=== PATIENT | female | born 1970 | race American Indian/Alaskan Native ===

== ENCOUNTER 2016-11-29 23:40 | Inpatient (IN) | payer MEDICAID ==
[2016-11-30 01:35] LABS: Basophils % (Auto) 0.9 % (0.0-1.8); Eosinophils % (Auto) 5.4 % (0.0-4.3); Hematocrit 31.3 % (30.3-42.9); Hemoglobin 10.2 gm/dl (10.1-14.3); Mean Corpuscular HGB Conc 33 % (30-34); Mean Corpuscular Hemoglobin 28 pg (28-32); Mean Corpuscular Volume 85 fl (79-97); Platelet Count 141 K/mm3 (140-440); Red Blood Count 3.69 M/mm3 (3.65-5.03); Red Cell Distribution Width 16.1 % (13.2-15.2); White Blood Count 5.1 K/mm3 (4.5-11.0)
[2016-11-30 01:53] LABS: BUN/Creatinine Ratio 16; Blood Urea Nitrogen 11 mg/dL (7-17); Carbon Dioxide 23 mmol/L (22-30); Glucose 83 mg/dL (65-100)
[2016-11-30 01:54] LABS: Alanine Aminotransferase 16 units/L (7-56); Albumin 3.5 g/dL (3.9-5); Albumin/Globulin Ratio 1.3 %; Alkaline Phosphatase 45 units/L (35-129); Anion Gap 18 mmol/L; Calcium 8.6 mg/dL (8.4-10.2); Lipase 21 units/L (13-60); Potassium 3.4 mmol/L (3.6-5.0); Sodium 142 mmol/L (137-145); Total Protein 6.3 g/dL (6.3-8.2)
[2016-11-30 02:26] LABS: Bilirubin,Urine SM (Negative); Blood,Urine NEG (Negative); Ketones,Urine 20 mg/dL (Negative); Leukocyte Esterase,Urine NEG (Negative); Mucus,Urine 3+ /HPF; Nitrite,Urine NEG (Negative)
[2016-11-30] MEDS ORDERED: ZOFRAN IV ONE (03:16)
[2016-11-30] MEDS ORDERED: NACL 0.9% 500 ML 500 ML IV ONE (03:16)
[2016-11-30] MEDS ORDERED: NACL 0.9% 1000 ML 1,000 ML ONE (03:41)
[2016-11-30] MEDS ORDERED: BENADRYL IV ONE (05:17)
[2016-11-30] MEDS ORDERED: NACL 0.9% 1000 ML 1,000 ML IV SCH (06:00)
--- NOTE | 2016-11-30 06:15 | Emergency Department Report ---
HPI - General Chief Complaint: Chest Pain Time Seen by Provider: 11/30/16 02:58 - HPI HPI: This is a 46-year-old female presents to the emergency Department with complaints of nausea, vomiting and significant edema. The patient was just discharged from [facility] after she had a surgical revision of her gastric bypass by Dr. Pitt. She was sent home with some pain medication and nausea medications but she has been unable to take these medications because she has been having copious nausea and vomiting. She is unable to eat any food and even has trouble keeping down small amounts of liquid. Secondarily the patient has the complaint of swelling to the feet, legs and up into her abdomen. She denies any history of CHF. She says that she has gained about 15 pounds in a short time secondary to this edema. She denies any chest pain, shortness of breath. She does say that she has some discomfort when trying to swallow but she had this status post revision as well. She has a past medical history that includes diabetes and arthritis. ED Past Medical Hx - Past Medical History Previous Medical History?: Yes Hx Hypertension: No Hx Congestive Heart Failure: No Hx Diabetes: No Hx GERD: Yes Hx Liver Disease: No Hx Renal Disease: No Hx Arthritis: Yes (Knees) Hx Seizures: No Hx Asthma: No Hx COPD: No Hx HIV: No - Surgical History Past Surgical History?: Yes Hx Breast Surgery: Yes (left cyst) - Social History Smoking Status: Never Smoker Substance Use Type: None - Medications Home Medications: Home Medications Medication Instructions Recorded Confirmed Last Taken Type Acetaminophen [Tylenol Extra 500 mg PO PRN PRN 11/18/16 11/18/16 11/20/16 History Strength] Cetirizine HCl [Zyrtec] 10 mg PO DAILY 11/18/16 11/18/16 11/20/16 History Ranitidine HCl [Zantac 150 MG TAB] 150 mg PO BID 11/18/16 11/18/16 11/20/16 History Fluticasone [Flonase] 1 spray NS QDAY 11/22/16 11/22/16 11/21/16 History ED Review of Systems ROS: Stated complaint: SWELLING IN FEET,LEGS & BELLY, Other details as noted in HPI Comment: All other systems reviewed and negative Constitutional: denies: chills, fever Eyes: denies: eye pain, eye discharge, vision change ENT: denies: ear pain, dental pain Respiratory: denies: cough, shortness of breath Cardiovascular: edema. denies: syncope Gastrointestinal: nausea, vomiting Genitourinary: denies: urgency, dysuria, discharge Musculoskeletal: denies: back pain, joint swelling, arthralgia Skin: denies: rash, lesions Neurological: denies: headache, weakness, paresthesias Physical Exam - Physical Exam Vital Signs: Vital Signs 11/30/16 11/30/16 11/30/16 00:29 03:50 03:51 Temperature 98 F 97.9 F Pulse Rate 40 L 45 L Respiratory 18 16 16 Rate Blood Pressure 134/60 Blood Pressure 110/51 [Right] O2 Sat by Pulse 100 100 100 Oximetry 11/30/16 03:53 Temperature Pulse Rate 45 L Respiratory Rate Blood Pressure Blood Pressure [Right] O2 Sat by Pulse Oximetry Physical Exam: GENERAL: The patient is well-developed well-nourished. HENT: Normocephalic. Atraumatic. Patient has moist mucous membranes. EYES: Extraocular motions are intact. Pupils equal reactive to light bilaterally. NECK: Supple. Trachea is midline. CHEST/LUNGS: Clear to auscultation. There is no respiratory distress noted. HEART/CARDIOVASCULAR: Regular. There is no tachycardia. There is no gallop rub or murmur. ABDOMEN: Abdomen is soft, nontender. Patient has normal bowel sounds. There is mild abdominal distention. SKIN: Patient has significant nonpitting edema to the bilateral lower extremities and up to the lower abdomen. NEURO: The patient is awake, alert, and oriented. The patient is cooperative. The patient has no focal neurologic deficits. The patient has normal speech. MUSCULOSKELETAL: There is no tenderness or deformity. There is no limitation range of motion. There is no evidence of acute injury. ED Course Vital Signs 11/30/16 11/30/16 11/30/16 00:29 03:50 03:51 Temperature 98 F 97.9 F Pulse Rate 40 L 45 L Respiratory 18 16 16 Rate Blood Pressure 134/60 Blood Pressure 110/51 [Right] O2 Sat by Pulse 100 100 100 Oximetry 11/30/16 03:53 Temperature Pulse Rate 45 L Respiratory Rate Blood Pressure Blood Pressure [Right] O2 Sat by Pulse Oximetry - Consultations Consultation #1: I spoke to Antoni, the nurse practitioner for Dr. Pitt. We discussed that the patient has been having nausea, vomiting and does appear to have signs of dehydration but that it is atypical as the patient also has significant generalized edema and it is hard to diuresis her and give her IV fluid resuscitation at the same time. At first we were going to attempt adding Phenergan per rectum with outpatient follow-up, but the patient still has been unable to keep down liquids and she'll oral rehydration. For this reason, Antoni allowed me to place bridging orders to Dr. Pitt's service. 11/30/16 06:13 ED Medical Decision Making - Lab Data Result diagrams: 11/30/16 01:09 11/30/16 01:09 - Medical Decision Making 46-year-old female presents to the emergency department with nausea, vomiting, dehydration and edema since being discharged after a surgical revision of her gastric bypass surgery. The majority of the patient's labs are unremarkable but she does have some ketones in her urine that do show some dehydration. Vital signs stable throughout her ED course. On physical exam the patient has significant nonpitting edema to the feet, bilateral lower extremities and even up into the abdomen. If the patient wasn't having signs of dehydration and required some fluid resuscitation, I normally would give Lasix and try diuresis. This would be counter intuitive and this particular patient. She was given some Zofran and continues to have some nausea and some vomiting and unable to keep down fluids for oral rehydration. On top of that the patient does have this unexplained significant edema with weight gain. And the patient has some sustained bradycardia where she is in the 40s. For all these reasons the patient will be admitted to the hospital for further evaluation. I was given permission to place the patient on MedSurg to Dr. Pitt's service. Critical Care Time: No Critical care attestation.: If time is entered above; I have spent that time in minutes in the direct care of this critically ill patient, excluding procedure time. ED Disposition Clinical Impression: Bradycardia, Dehydration Edema Qualifiers: Edema type: generalized Qualified Code(s): R60.1 - Generalized edema Nausea & vomiting Qualifiers: Vomiting type: unspecified Vomiting Intractability: intractable Qualified Code( s): R11.2 - Nausea with vomiting, unspecified Disposition: OP ADMIT IP TO THIS HOSP Is pt being admited?: Yes Condition: Stable Time of Disposition: 06:17
[2016-11-30] MEDS ORDERED: DILAUDID IV PRN (10:16)
[2016-11-30] MEDS: 1: FOLVITE 1 MG, INFUVITE 10 ML, VITAMIN B-1 100 MG in NACL 0.9% 1000 ML 988.8 ML 2: NA IV SCH (11:44)
[2016-11-30] MEDS: DILAUDID IV PRN ×3 (11:45→23:14)
[2016-11-30] MEDS: HEPARIN SUB-Q SCH ×3 (14:12→23:06)
[2016-11-30] MEDS ORDERED: D5W/0.45% NACL/KCL 20 MEQ 20 MEQ/1,000 ML BAG IV SCH (15:00)
[2016-11-30] MEDS ORDERED: KCL 10MEQ/100ML 10 MEQ/100 ML BAG IV SCH (15:00)
[2016-11-30] MEDS: BENADRYL IV PRN ×2 (16:50→23:09)
[2016-11-30] MEDS: KCL 10MEQ/100ML 10 MEQ/100 ML BAG IV SCH ×2 (20:57→22:59)
--- NOTE | 2016-11-30 21:29 | History and Physical Report ---
History of Present Illness Date of examination: 12/01/16 Date of admission: 11/30/16 05:42 Chief complaint: vomiting after drinking, leg edema History of present illness: 46 y.o. F presented to the hospital for vomiting after eating and lower extremity edema. Pt was recently discharged last week. She is s/p laparoscopic revision of gastric bypass 11/22. She tolerated the procedure well. Post operatively she had difficulty swallowing. She often had regurg if liquids after swallowing. This improved over the course of 2-3 days and she was able to be discharged. She presented now with the same complaint. She does not vomit after drinking everytime. She feels tightness in her lower chest after swallowing and feels the liquid gets stuck. The liquid pools that comes up. She denies nausea or sob. She denies chest pain at rest or when she is not swallowing. She also complains of bl leg swelling. She stated the swelling happend shortly after she was discharged from the hospital. She her legs also swelled after she had a c section years ago. She denies sob or orthopnea. Past History Past Medical History: No medical history, other (Pt does not have a pcp currently) Past Surgical History: Other (c section, Lap gastric bypass, lap gastric bypass revision 11/22/2016) Social history: no significant social history Family history: no significant family history Medications and Allergies Allergies Allergy/AdvReac Type Severity Reaction Status Date / Time No Known Allergies Allergy Verified 11/30/16 00:38 Home Medications Medication Instructions Recorded Confirmed Last Taken Type Acetaminophen [Tylenol Extra 500 mg PO PRN PRN 11/18/16 11/18/16 11/20/16 History Strength] Cetirizine HCl [Zyrtec] 10 mg PO DAILY 11/18/16 11/18/16 11/20/16 History Ranitidine HCl [Zantac 150 MG TAB] 150 mg PO BID 11/18/16 11/18/16 11/20/16 History Fluticasone [Flonase] 1 spray NS QDAY 11/22/16 11/22/16 11/21/16 History Active Meds: Active Medications Diphenhydramine HCl (Benadryl) 25 mg IV Q6H PRN PRN Reason: Itching Last Admin: 11/30/16 16:50 Dose: 25 mg Heparin Sodium (Porcine) (Heparin) 5,000 unit SUB-Q Q8HR [facility] Last Admin: 11/30/16 14:12 Dose: 5,000 unit Hydromorphone HCl (Dilaudid) 0.5 mg IV Q3H PRN PRN Reason: Pain , Severe (7-10) Last Admin: 11/30/16 16:50 Dose: 0.5 mg Folic Acid 1 mg/ Multivitamins /Minerals 10 ml/ Thiamine HCl 100 mg/ Sodium Chloride 1,000 mls @ 125 mls/hr IV .BY DURATION [facility] Last Admin: 11/30/16 11:44 Dose: 125 mls/hr Sodium Chloride (Nacl 0.9% 1000 Ml) 1,000 mls @ 125 mls/hr IV .BY DURATION [facility] Potassium Chloride/Dextrose/Sod Cl (D5w/0.45% Nacl/Kcl 20 Meq) 20 meq in 1,000 mls @ 125 mls/hr IV DIRECT RIA Potassium Chloride (Kcl 10meq/100ml) 10 meq in 100 mls @ 100 mls/hr IV Q1H [facility] Stop: 11/30/16 21:59 Review of Systems - Constitutional weight gain (feels swelling has caused her to gain wt), no weight loss - Cardiovascular chest pain (when swallow), edema, no orthopnea, no palpitations, no rapid/ irregular heart beat - Respiratory no cough, no cough with sputum, no excessive sputum, no hemoptysis, no shortness of breath - Gastrointestinal vomiting (per hpi), no abdominal pain, no nausea - Muskuloskeletal no neck stiffness, no neck pain, no shooting arm pain, no arm numbness/tingling , no low back pain, no shooting leg pain, no leg numbness/tingling, no redness of joints - Integumentary pruritis, no rash, no redness, no sores, no wounds, no jaundice - Neurological no numbness, no syncope - Psychiatric no anxiety, no memory loss Exam Vital Signs Temp Pulse Resp BP Pulse Ox 98 F 40 L 18 134/60 100 11/30/16 00:29 11/30/16 00:29 11/30/16 00:29 11/30/16 00:29 11/30/16 00:29 - General physical appearance Positive: well developed, well nourished, no distress - Eyes Positive: PERRL - Cardiovascular Rhythm: regular - Extremities Extremity abnormal: edema (BL lower extremity edema: feet to mid thigh. +1) Peripheral Pulses: within normal limits - Breasts Breasts: deferred - Abdomen Abdomen: Present: soft (tender at umbilicus. umbilius: serous/white drainage. no erythema. incisions healing. no rebound no guarding ) - Integumentary no rash - Neurologic Neurologic: motor strength and sensation are grossly intact - Musculoskeletal normal posture - Psychiatric Psychiatric: appropriate mood/affect, intact judgment & insight, memory intact Results - Labs 12/01/16 04:20 12/01/16 04:20 Abnormal lab results 11/30/16 Range/Units Unknown Ur Specific [place] 1.033 H (1.003-1.030) Assessment and Plan 46 y.o. F s/p Lap revision of gastric bypass 1 week ago, now presenting with vomiting: -Vomiting/regurgitation after liquids: Prev. UGI series showed possible esophageal spasm. Will treat conservatively. If symptoms do not improve will order CT with po contast -LE edema: r/o dvt: venous duplex ordered bl lower extremities - Bradycardia: asymptomatic but no prev. hx except for last admission Cardiology consulted- Requested TSH and echo. EKG performed this am. GI and DVT proph - Patient Problems (1) Dehydration Current Visit: Yes Status: Acute
[2016-12-01] MEDS: BENADRYL IV PRN ×3 (04:34→17:52)
[2016-12-01] MEDS: DILAUDID IV PRN ×3 (04:34→17:52)
[2016-12-01 05:04] LABS: Basophils % (Auto) 1.1 % (0.0-1.8); Eosinophils % (Auto) 5.6 % (0.0-4.3); Hematocrit 31.1 % (30.3-42.9); Hemoglobin 10.2 gm/dl (10.1-14.3); Mean Corpuscular HGB Conc 33 % (30-34); Mean Corpuscular Hemoglobin 28 pg (28-32); Mean Corpuscular Volume 86 fl (79-97); Platelet Count 134 K/mm3 (140-440); Red Cell Distribution Width 16.4 % (13.2-15.2); White Blood Count 3.5 K/mm3 (4.5-11.0)
[2016-12-01 05:30] LABS: Anion Gap 16 mmol/L; BUN/Creatinine Ratio 18; Blood Urea Nitrogen 11 mg/dL (7-17); Calcium 8.4 mg/dL (8.4-10.2); Carbon Dioxide 25 mmol/L (22-30); Chloride 105.4 mmol/L (98-107); Glucose 70 mg/dL (65-100); Potassium 3.8 mmol/L (3.6-5.0); Sodium 143 mmol/L (137-145)
[2016-12-01] MEDS: HEPARIN SUB-Q SCH ×2 (05:40→13:45)
[2016-12-01] MEDS: 1: FOLVITE 1 MG, INFUVITE 10 ML, VITAMIN B-1 100 MG in NACL 0.9% 1000 ML 988.8 ML 2: NA IV SCH ×2 (05:56→12:57)
--- NOTE | 2016-12-01 09:02 | Progress Note ---
Assessment and Plan 46 y.o. F s/p Lap revision of gastric bypass 1 week ago, now presenting with vomiting: -Vomiting/regurgitation after liquids: Prev. UGI series showed possible esophageal spasm. Will treat conservatively. If symptoms do not improve will order CT with po contast -LE edema: r/o dvt: venous duplex ordered bl lower extremities - prelim report neg for dvt - Bradycardia/lower ext edea: asymptomatic but no prev. hx except for last admission Cardiology consulted- Requested TSH and echo. EKG performed this am. GI and DVT proph - Patient Problems (1) Dehydration Current Visit: Yes Status: Acute Subjective Narrative: Pt seen and examined at bedside. Pt resting comfortably. Denies nausea. Pt has not tried drinking anything since being admitted. Denies abominal pain or chest pain currently. Denies sob. C/o lower extremity edema but has slightly improved since admission. denies fever or chills. Objective Vital Signs - 12hr 12/01/16 12/01/16 12/01/16 00:11 00:12 04:00 Temperature 97.4 F L 97.5 F L Pulse Rate 53 L 57 L Respiratory 18 Rate Blood Pressure 125/71 Blood Pressure 132/76 [Right] O2 Sat by Pulse 97 Oximetry 12/01/16 12/01/16 04:57 04:58 Temperature Pulse Rate 54 L 59 L Respiratory Rate Blood Pressure Blood Pressure [Right] O2 Sat by Pulse 98 95 Oximetry - General physical appearance well developed, obese - Respiratory normal expansion, normal respiratory effort - Abdomen soft, bowel sounds normal, other (incision site healing- umbilicus draining clear/white discharge. no rebound no guarding ) - Integumentary no rash - Neurologic normal coordination, normal sensation - Musculoskeletal normal posture, other (+1 lower extremity edema bl. feet to mid thigh. non tender legs bl) - Labs 12/01/16 04:20 12/01/16 04:20 Diabetes panel 12/01/16 Range/Units 04:20 Sodium 143 (137-145) mmol/L Potassium 3.8 (3.6-5.0) mmol/L Chloride 105.4 (98-107) mmol/L Carbon Dioxide 25 (22-30) mmol/L BUN 11 (7-17) mg/dL Creatinine 0.6 L (0.7-1.2) mg/dL Glucose 70 (65-100) mg/dL Calcium 8.4 (8.4-10.2) mg/dL Thyroid panel 12/01/16 Range/Units 04:20 TSH 1.440 (0.270-4.200) mlU/mL Calcium panel 12/01/16 Range/Units 04:20 Calcium 8.4 (8.4-10.2) mg/dL Phosphorus 3.90 (2.5-4.5) mg/dL Pituitary panel 12/01/16 12/01/16 Range/Units 04:20 04:20 Sodium 143 (137-145) mmol/L Potassium 3.8 (3.6-5.0) mmol/L Chloride 105.4 (98-107) mmol/L Carbon Dioxide 25 (22-30) mmol/L BUN 11 (7-17) mg/dL Creatinine 0.6 L (0.7-1.2) mg/dL Glucose 70 (65-100) mg/dL Calcium 8.4 (8.4-10.2) mg/dL TSH 1.440 (0.270-4.200) mlU/mL Adrenal panel 12/01/16 Range/Units 04:20 Sodium 143 (137-145) mmol/L Potassium 3.8 (3.6-5.0) mmol/L Chloride 105.4 (98-107) mmol/L Carbon Dioxide 25 (22-30) mmol/L BUN 11 (7-17) mg/dL Creatinine 0.6 L (0.7-1.2) mg/dL Glucose 70 (65-100) mg/dL Calcium 8.4 (8.4-10.2) mg/dL
[2016-12-01] MEDS ORDERED: VASELINE LIP THERAPY TP ONE (09:57)
--- NOTE | 2016-12-01 11:15 | Consultation ---
History of Present Illness Consult date: 12/01/16 Consult reason: bradycardia History of present illness: This is a 46yr old woman who presented with nausea and vomiting. Patient is 1 week status post laparoscopic revision of gastric bypass. Post surgery patient reports difficulty swallowing and unable to keep food down. In addition, she reported bilateral lower extremity edema x 1 day. She denies shortness of breath and chest pain. Patient denies prior cardiac history and prior cardiac workup. A cardiac consultation was requested for bradycardia. A 12 lead ECG is a sinus bradycardia, rate of 48. Patient denies dizziness. She denies loss of consciousness. Labs shows a normal TSH of 1.4. Past History Past Medical History: No medical history, other (Pt does not have a pcp currently) Past Surgical History: Other (c section, Lap gastric bypass, lap gastric bypass revision 11/22/2016) Social history: no significant social history Family history: no significant family history Medications and Allergies Allergies Allergy/AdvReac Type Severity Reaction Status Date / Time No Known Allergies Allergy Verified 11/30/16 00:38 Home Medications Medication Instructions Recorded Confirmed Last Taken Type Acetaminophen [Tylenol Extra 500 mg PO PRN PRN 11/18/16 11/18/16 11/20/16 History Strength] Cetirizine HCl [Zyrtec] 10 mg PO DAILY 11/18/16 11/18/16 11/20/16 History Ranitidine HCl [Zantac 150 MG TAB] 150 mg PO BID 11/18/16 11/18/16 11/20/16 History Fluticasone [Flonase] 1 spray NS QDAY 11/22/16 11/22/16 11/21/16 History Active Meds: Active Medications Diphenhydramine HCl (Benadryl) 25 mg IV Q6H PRN PRN Reason: Itching Last Admin: 12/01/16 04:34 Dose: 25 mg Famotidine (Pepcid) 20 mg IV QDAY RIA Heparin Sodium (Porcine) (Heparin) 5,000 unit SUB-Q Q8HR RIA Last Admin: 12/01/16 05:40 Dose: 5,000 unit Hydromorphone HCl (Dilaudid) 0.5 mg IV Q3H PRN PRN Reason: Pain , Severe (7-10) Last Admin: 12/01/16 04:34 Dose: 0.5 mg Folic Acid 1 mg/ Multivitamins /Minerals 10 ml/ Thiamine HCl 100 mg/ Sodium Chloride 1,000 mls @ 125 mls/hr IV .BY DURATION [facility] Last Infusion: 12/01/16 05:57 Dose: Infused Sodium Chloride (Nacl 0.9% 1000 Ml) 1,000 mls @ 125 mls/hr IV .BY DURATION [facility] Last Admin: 12/01/16 05:56 Dose: Not Given Potassium Chloride/Dextrose/Sod Cl (D5w/0.45% Nacl/Kcl 20 Meq) 20 meq in 1,000 mls @ 125 mls/hr IV DIRECT RIA Sucralfate (Carafate) 1 gm PO Q6HR [facility] Physical Examination Vital Signs Temp Pulse Resp BP Pulse Ox 98 F 40 L 18 134/60 100 11/30/16 00:29 11/30/16 00:29 11/30/16 00:29 11/30/16 00:29 11/30/16 00:29 General appearance: no acute distress HEENT: Positive: PERRL Neck: Positive: trachea midline Cardiac: Positive: Reg Rate and Rhythm Neuro: Positive: Grossly Intact Extremities: Absent: edema Results 12/01/16 04:20 12/01/16 04:20 CBC 12/01/16 Range/Units 04:20 WBC 3.5 L (4.5-11.0) K/mm3 RBC 3.60 L (3.65-5.03) M/mm3 Hgb 10.2 (10.1-14.3) gm/dl Hct 31.1 (30.3-42.9) % Plt Count 134 L (140-440) K/mm3 Lymph # 1.3 (1.2-5.4) K/mm3 [place] # 0.3 (0.0-0.8) K/mm3 Eos # 0.2 (0.0-0.4) K/mm3 Baso # 0.0 (0.0-0.1) K/mm3 Comprehensive Metabolic Panel 12/01/16 Range/Units 04:20 Sodium 143 (137-145) mmol/L Potassium 3.8 (3.6-5.0) mmol/L Chloride 105.4 (98-107) mmol/L Carbon Dioxide 25 (22-30) mmol/L BUN 11 (7-17) mg/dL Creatinine 0.6 L (0.7-1.2) mg/dL Glucose 70 (65-100) mg/dL Calcium 8.4 (8.4-10.2) mg/dL Assessment and Plan Nausea/vomiting s/p laparoscopic revision of gastric bypass 1 wk ago Asymptomatic sinus bradycardia normal TSH Bilateral LE edema no evidence of DVT by venous doppler Plan: Echocardiogram Telemetry monitoring.
[2016-12-01] MEDS: PEPCID IV SCH (11:33)
[2016-12-01] MEDS: CARAFATE PO SCH ×2 (11:41→17:54)
[2016-12-01] MEDS ORDERED: D5W/0.45% NACL/KCL 20 MEQ 20 MEQ/1,000 ML BAG IV SCH (14:00)
--- NOTE | 2016-12-01 16:54 | Vascular Lab Report ---
LOWER EXTREMITY VENOUS DUPLEX: REASON FOR EXAM: Swelling of the lower extremities. COMMENTS ON THE RIGHT: All veins visualized are freely compressible without evidence of internal echogenicity. Flow is spontaneous and phasic throughout. COMMENTS ON THE LEFT: All veins visualized are freely compressible without evidence of internal echogenicity. Flow is spontaneous and phasic throughout. IMPRESSION: No evidence of acute or chronic deep venous thrombosis in either lower extremity.
[2016-12-01] MEDS ORDERED: TPN ADULT 2,016 ML IV SCH (20:00)
[2016-12-02] MEDS: DILAUDID IV PRN ×3 (00:03→18:21)
[2016-12-02] MEDS: BENADRYL IV PRN ×3 (00:04→18:20)
[2016-12-02] MEDS: HEPARIN SUB-Q SCH ×2 (00:04→07:09)
[2016-12-02] MEDS: CARAFATE PO SCH ×3 (00:05→17:22)
--- NOTE | 2016-12-02 08:03 | Progress Note ---
Assessment and Plan - Patient Problems (1) Dehydration Current Visit: Yes Status: Acute Subjective Narrative: Pt able to swallow some liquids but still has the feeling of regurg and vomiting after drinking fluids. She denies abdominal pain. Objective Vital Signs - 12hr 12/01/16 12/02/16 12/02/16 22:00 00:03 00:20 Temperature 97.7 F Pulse Rate 58 L Pulse Rate [ 62 Right Radial] Respiratory 18 16 20 Rate Blood Pressure 117/74 Blood Pressure [Right] O2 Sat by Pulse 98 100 Oximetry 12/02/16 12/02/16 12/02/16 00:21 00:33 05:10 Temperature Pulse Rate 57 L 58 L Pulse Rate [ Right Radial] Respiratory 16 Rate Blood Pressure 117/74 Blood Pressure [Right] O2 Sat by Pulse 100 87 Oximetry 12/02/16 12/02/16 05:44 07:07 Temperature 98.0 F 98.2 F Pulse Rate 64 Pulse Rate [ Right Radial] Respiratory 16 18 Rate Blood Pressure 136/99 Blood Pressure 134/74 [Right] O2 Sat by Pulse 96 Oximetry - Labs 12/01/16 04:20 12/01/16 04:20
[2016-12-02] MEDS: PEPCID IV SCH (10:33)
--- NOTE | 2016-12-02 11:55 | Progress Note ---
Assessment and Plan Nausea/vomiting s/p laparoscopic revision of gastric bypass 1 wk ago Asymptomatic sinus bradycardia normal TSH normal LVEF Bilateral LE edema no evidence of DVT by venous doppler Plan: No further cardiac work-up needed May go home cardiac johnson Subjective Date of service: 12/02/16 Principal diagnosis: Bradycardia Interval history: Patient is doing well, no cardiac complaints Objective Vital Signs Temp Pulse Pulse Resp BP BP Pulse Ox 12/02/16 07:07 98.2 F 64 18 136/99 96 12/02/16 05:44 98.0 F 16 134/74 12/02/16 05:10 58 L 87 12/02/16 00:33 16 12/02/16 00:21 57 L 117/74 100 12/02/16 00:20 97.7 F 58 L 20 117/74 100 12/02/16 00:03 16 12/01/16 22:00 62 18 98 12/01/16 19:00 97.5 F L 54 L 20 126/67 12/01/16 16:00 98.5 F 18 129/79 - Physical Examination HEENT: Positive: PERRL Neck: Positive: trachea midline Cardiac: Positive: Reg Rate and Rhythm Lungs: Positive: Normal Exam Neuro: Positive: Grossly Intact Extremities: Absent: edema
--- NOTE | 2016-12-02 12:48 | XRay Report ---
AP CHEST: HISTORY: PICC placement A left arm PICC has been inserted which terminates in the lower SVC. Heart size and pulmonary vascularity are at the upper limits of normal. The lungs are clear. No large infiltrate, pleural effusion or pneumothorax. IMPRESSION: The left arm PICC terminates in the lower SVC.
--- NOTE | 2016-12-02 12:49 | XRay Report ---
AP CHEST: HISTORY: PICC placement A right arm PICC has been inserted which is coiled in the right axillary vein. Replacement is recommended. Heart size and pulmonary vascularity are at the upper limits of normal. The lungs are clear. No evidence for pneumonia, CHF or pneumothorax. IMPRESSION: The right arm PICC is coiled in the right axillary vein.
[2016-12-02 13:08] LABS: Anion Gap 14 mmol/L; BUN/Creatinine Ratio 14; Blood Urea Nitrogen 7 mg/dL (7-17); Carbon Dioxide 26 mmol/L (22-30); Chloride 103.9 mmol/L (98-107); Glucose 80 mg/dL (65-100); Potassium 3.8 mmol/L (3.6-5.0); Sodium 140 mmol/L (137-145)
--- NOTE | 2016-12-02 16:39 | XRay Report ---
ABDOMEN RADIOGRAPH INDICATION: Followup esophageal spasm. COMPARISON: 11/25/2016 FINDINGS: Frontal abdominal radiograph obtained as oil scout for barium swallow/upper GI exam ordered demonstrates admixed hyperdense stool/contrast throughout the colon, greatest in the left upper quadrant. Faint adjacent gastric staple lines also noted. Overall nonobstructive bowel gas pattern. CONCLUSION: Residual colonic contrast that would compromise the ordered exam and should be rescheduled until after colonic clearing. Other findings, including constipation. Thank you for the opportunity to participate in this patient's care.
--- NOTE | 2016-12-02 17:00 | Progress Note ---
Assessment and Plan 46 y.o. F s/p Lap revision of gastric bypass 1 week ago, presented with vomiting: -Vomiting/regurgitation after liquids: Improving with conservative tx. Will continue. Prev. UGI series showed possible esophageal spasm. Repeat UGI series cancelled due to contrast in stomach and intestines from previous study. -LE edema: improving. Venous duplex bl lower extremities was negative for DVT - Bradycardia/lower ext edema: asymptomatic but no prev. hx except for last admission Cardiology consult stated no further work-up needed. TSH wnl (1.44) and Echo unremarkable. EKG- sinus bradycardia GI and DVT proph Disposition: awaiting for case management to arrange at-home TPN. 24 hour in- hospital TPN cycle and monitored caloric intake required before company will administer TPN at-home. Will talk to case management again tomorrow - Patient Problems (1) Dehydration Current Visit: Yes Status: Acute Subjective Narrative: Pt is doing well. Denies any nausea/vomiting. Pt is able to tolerate small amounts of fluids. Pain is controlled with medication. Pt feels LE swelling is improving. Objective Vital Signs - 12hr 12/02/16 12/02/16 12/02/16 05:10 05:44 07:07 Temperature 98.0 F 98.2 F Pulse Rate 58 L 64 Respiratory 16 18 Rate Blood Pressure 136/99 Blood Pressure 134/74 [Right] O2 Sat by Pulse 87 96 Oximetry 12/02/16 12/02/16 13:06 15:26 Temperature 97.7 F 97.9 F Pulse Rate 54 L 72 Respiratory 18 18 Rate Blood Pressure 129/73 136/77 Blood Pressure [Right] O2 Sat by Pulse 100 89 Oximetry - General physical appearance Narrative Exam: General: well-appearing, no acute distress Abd: soft, non-tender, no rigidity, no guarding, incisions healing well. Extremities: 2+ non-pitting LE edema up to mid-thigh bilaterally. - Labs 12/01/16 04:20 12/02/16 12:34 Diabetes panel 12/02/16 Range/Units 12:34 Sodium 140 (137-145) mmol/L Potassium 3.8 (3.6-5.0) mmol/L Chloride 103.9 (98-107) mmol/L Carbon Dioxide 26 (22-30) mmol/L BUN 7 (7-17) mg/dL Creatinine 0.5 L (0.7-1.2) mg/dL Glucose 80 (65-100) mg/dL Calcium 8.0 L (8.4-10.2) mg/dL Calcium panel 12/02/16 Range/Units 12:34 Calcium 8.0 L (8.4-10.2) mg/dL Phosphorus 2.50 D (2.5-4.5) mg/dL Pituitary panel 12/02/16 Range/Units 12:34 Sodium 140 (137-145) mmol/L Potassium 3.8 (3.6-5.0) mmol/L Chloride 103.9 (98-107) mmol/L Carbon Dioxide 26 (22-30) mmol/L BUN 7 (7-17) mg/dL Creatinine 0.5 L (0.7-1.2) mg/dL Glucose 80 (65-100) mg/dL Calcium 8.0 L (8.4-10.2) mg/dL Adrenal panel 12/02/16 Range/Units 12:34 Sodium 140 (137-145) mmol/L Potassium 3.8 (3.6-5.0) mmol/L Chloride 103.9 (98-107) mmol/L Carbon Dioxide 26 (22-30) mmol/L BUN 7 (7-17) mg/dL Creatinine 0.5 L (0.7-1.2) mg/dL Glucose 80 (65-100) mg/dL Calcium 8.0 L (8.4-10.2) mg/dL
[2016-12-02] MEDS ORDERED: TPN ADULT 2,016 ML IV SCH (20:00)
[2016-12-03] MEDS: CARAFATE PO SCH ×5 (00:42→18:24)
[2016-12-03] MEDS: DILAUDID IV PRN ×4 (00:43→22:11)
[2016-12-03] MEDS: BENADRYL IV PRN ×4 (00:44→22:10)
[2016-12-03] MEDS: HEPARIN SUB-Q SCH ×4 (00:45→22:12)
[2016-12-03] MEDS ORDERED: D5/0.45NS 1,000 ML IV SCH (06:00)
[2016-12-03 06:35] LABS: Anion Gap 16 mmol/L; BUN/Creatinine Ratio 8; Blood Urea Nitrogen 5 mg/dL (7-17); Calcium 7.9 mg/dL (8.4-10.2); Carbon Dioxide 23 mmol/L (22-30); Chloride 103.3 mmol/L (98-107); Glucose 107 mg/dL (65-100); Potassium 3.8 mmol/L (3.6-5.0); Sodium 138 mmol/L (137-145)
[2016-12-03] MEDS ORDERED: MAGNESIUM SULFATE 2GM/50ML 2 GM/50 ML BAG IV ONE (08:42)
--- NOTE | 2016-12-03 09:54 | Progress Note ---
Assessment and Plan 46 y.o. F s/p Lap revision of gastric bypass 1 week ago, presented with vomiting: -Vomiting/regurgitation after liquids: Improving with conservative tx. Will continue. Prev. UGI series showed possible esophageal spasm. Repeat UGI series cancelled due to contrast in stomach and intestines from previous study. -LE edema: improving. Venous duplex bl lower extremities was negative for DVT -instructed pt to keep legs elevated while in bed. - Bradycardia/lower ext edema: asymptomatic but no prev. hx except for last admission Cardiology consult stated no further work-up needed. TSH wnl (1.44) and Echo unremarkable. EKG- sinus bradycardia Pain LUE s/p picc line: continue warm compress. Will contact IR to eval. GI and DVT proph Disposition: awaiting for case management to arrange at-home TPN. 24 hour in- hospital TPN cycle and monitored caloric intake required before company will administer TPN at-home. Will talk to case management again tomorrow - Patient Problems (1) Dehydration Current Visit: Yes Status: Acute Subjective Narrative: Pt c/o of left upper arm pain at site of picc line insertion. Warm pack to left arm helped yesterday with discomfort. Minimal swelling at insertion site but not at upper arm. Pt able to swallow small amounts of fluids. She states her legs feels tight but somewhat better compared to yesterday. Afebrile. Denies n/v. some regurg if she drinks too much fluid. Objective Vital Signs - 12hr 12/03/16 12/03/16 12/03/16 00:43 01:02 01:03 Temperature 32.1 F L Pulse Rate 47 L 46 L Respiratory 18 18 Rate Blood Pressure 113/59 O2 Sat by Pulse 96 97 Oximetry 12/03/16 12/03/16 12/03/16 01:04 01:08 04:31 Temperature 98.3 F Pulse Rate 54 L 72 54 L Respiratory 20 Rate Blood Pressure 104/59 109/65 O2 Sat by Pulse 95 99 Oximetry 12/03/16 12/03/16 12/03/16 07:50 07:51 07:53 Temperature 97.6 F Pulse Rate 51 L 56 L Respiratory 18 20 Rate Blood Pressure 117/63 O2 Sat by Pulse 99 98 Oximetry - General physical appearance well developed, well nourished, no distress - Respiratory normal expansion, normal respiratory effort - Abdomen soft, tender (tender at umbilicus. umbilicus cleaned with betadine with dressing placed over. incisions cdi. no rebound no guarding ) - Neurologic normal coordination - Musculoskeletal normal gait, normal posture, other (LUE: picc line in place. tender to palp at insertion site. minimal swelling at site of insertion. +1-2 edema of LE bl . feet to midthigh ) - Labs 12/01/16 04:20 12/03/16 05:49 Diabetes panel 12/02/16 12/03/16 Range/Units 12:34 05:49 Sodium 140 138 (137-145) mmol/L Potassium 3.8 3.8 (3.6-5.0) mmol/L Chloride 103.9 103.3 (98-107) mmol/L Carbon Dioxide 26 23 (22-30) mmol/L BUN 7 5 L (7-17) mg/dL Creatinine 0.5 L 0.6 L (0.7-1.2) mg/dL Glucose 80 107 H (65-100) mg/dL Calcium 8.0 L 7.9 L (8.4-10.2) mg/dL Calcium panel 12/02/16 12/03/16 Range/Units 12:34 05:49 Calcium 8.0 L 7.9 L (8.4-10.2) mg/dL Phosphorus 2.50 D 2.60 (2.5-4.5) mg/dL Pituitary panel 12/02/16 12/03/16 Range/Units 12:34 05:49 Sodium 140 138 (137-145) mmol/L Potassium 3.8 3.8 (3.6-5.0) mmol/L Chloride 103.9 103.3 (98-107) mmol/L Carbon Dioxide 26 23 (22-30) mmol/L BUN 7 5 L (7-17) mg/dL Creatinine 0.5 L 0.6 L (0.7-1.2) mg/dL Glucose 80 107 H (65-100) mg/dL Calcium 8.0 L 7.9 L (8.4-10.2) mg/dL Adrenal panel 12/02/16 12/03/16 Range/Units 12:34 05:49 Sodium 140 138 (137-145) mmol/L Potassium 3.8 3.8 (3.6-5.0) mmol/L Chloride 103.9 103.3 (98-107) mmol/L Carbon Dioxide 26 23 (22-30) mmol/L BUN 7 5 L (7-17) mg/dL Creatinine 0.5 L 0.6 L (0.7-1.2) mg/dL Glucose 80 107 H (65-100) mg/dL Calcium 8.0 L 7.9 L (8.4-10.2) mg/dL
[2016-12-03] MEDS: PEPCID IV SCH (12:29)
[2016-12-03] MEDS ORDERED: HYDROGEN PEROXIDE TP ONE (17:00)
[2016-12-03] MEDS ORDERED: TPN ADULT 2,016 ML IV SCH (20:00)
[2016-12-04] MEDS: CARAFATE PO SCH ×5 (00:39→23:13)
[2016-12-04] MEDS: BENADRYL IV PRN ×3 (05:25→18:34)
[2016-12-04] MEDS: DILAUDID IV PRN ×3 (05:26→18:34)
[2016-12-04] MEDS: HEPARIN SUB-Q SCH ×4 (05:27→21:03)
[2016-12-04 05:30] LABS: Anion Gap 11 mmol/L; BUN/Creatinine Ratio 5; Blood Urea Nitrogen 3 mg/dL (7-17); Calcium 7.8 mg/dL (8.4-10.2); Carbon Dioxide 27 mmol/L (22-30); Chloride 104.3 mmol/L (98-107); Glucose 97 mg/dL (65-100); Potassium 3.9 mmol/L (3.6-5.0); Sodium 138 mmol/L (137-145)
[2016-12-04] MEDS: PEPCID IV SCH (10:31)
--- NOTE | 2016-12-04 12:49 | Progress Note ---
Assessment and Plan 46 y.o. F s/p Lap revision of gastric bypass 11/24/16,, presented with vomiting : -Vomiting/regurgitation after liquids= resolved. However pt cannot tolerated the full amount of liquids required to maintain her nutrition. A picc line was placed and tpn has been started. She is awaiting VNS for home TPN infusion. -Pt has been tolerating TPN well. Will continue 84 mls IV TPN till tomorrow for 24 hr cycle. -will evaluate again tomorrow after the am labs. -LE edema: -Pt's LE edema has improved. Instructed again to keep her legs elevated. Will examine again tomorrow - Bradycardia/lower ext edema: asymptomatic but no prev. hx except for last admission Cardiology consult stated no further work-up needed. TSH wnl (1.44) and Echo unremarkable. EKG- sinus bradycardia Pain LUE s/p picc line: pain improved at the PICC site. GI and DVT proph Disposition: Case management on the case. Will talk to the disease case manager for possible dc tomorrow. - Patient Problems (1) Dehydration Current Visit: Yes Status: Acute Subjective Narrative: Pt is doing well. Pt's tenderness at the PICC line site has improved since yesterday. Pt is tolerating TPN. She able to tolerate small sips of liquids without drinking vomiting or regurgitating. If she drinks too much or fast, she has feeling of regurgitation. She feels the edema in her legs has improved. Pt denies any nausea, vomiting. Afebrile Objective Vital Signs - 12hr 12/04/16 12/04/16 12/04/16 05:26 05:56 09:12 Temperature 98 F Pulse Rate 57 L Respiratory Rate Blood Pressure Blood Pressure 125/84 [Right] O2 Sat by Pulse Oximetry 12/04/16 10:23 Temperature 97.7 F Pulse Rate 36 L Respiratory Rate Blood Pressure 107/84 Blood Pressure [Right] O2 Sat by Pulse 100 Oximetry - General physical appearance Narrative Exam: General: well-appearing, no acute distress, obese Abd: soft, non-tender, no rigidity, no guarding, incisions clean dry intact. Extremities: 1+ non-pitting LE edema up to mid-thigh bilaterally. non tender. edema improved greatly compared to yesterday Psy: calm and relaxed - Labs 12/01/16 04:20 12/04/16 04:31 Diabetes panel 12/04/16 Range/Units 04:31 Sodium 138 (137-145) mmol/L Potassium 3.9 (3.6-5.0) mmol/L Chloride 104.3 (98-107) mmol/L Carbon Dioxide 27 (22-30) mmol/L BUN 3 L (7-17) mg/dL Creatinine 0.6 L (0.7-1.2) mg/dL Glucose 97 (65-100) mg/dL Calcium 7.8 L (8.4-10.2) mg/dL Calcium panel 12/04/16 Range/Units 04:31 Calcium 7.8 L (8.4-10.2) mg/dL Phosphorus 2.80 (2.5-4.5) mg/dL Pituitary panel 12/04/16 Range/Units 04:31 Sodium 138 (137-145) mmol/L Potassium 3.9 (3.6-5.0) mmol/L Chloride 104.3 (98-107) mmol/L Carbon Dioxide 27 (22-30) mmol/L BUN 3 L (7-17) mg/dL Creatinine 0.6 L (0.7-1.2) mg/dL Glucose 97 (65-100) mg/dL Calcium 7.8 L (8.4-10.2) mg/dL Adrenal panel 12/04/16 Range/Units 04:31 Sodium 138 (137-145) mmol/L Potassium 3.9 (3.6-5.0) mmol/L Chloride 104.3 (98-107) mmol/L Carbon Dioxide 27 (22-30) mmol/L BUN 3 L (7-17) mg/dL Creatinine 0.6 L (0.7-1.2) mg/dL Glucose 97 (65-100) mg/dL Calcium 7.8 L (8.4-10.2) mg/dL
[2016-12-04] MEDS ORDERED: TPN ADULT 2,016 ML IV SCH (20:00)
[2016-12-05] MEDS: BENADRYL IV PRN ×2 (00:49→09:36)
[2016-12-05] MEDS: DILAUDID IV PRN ×4 (00:50→21:05)
[2016-12-05] MEDS: HEPARIN SUB-Q SCH ×2 (05:11→16:38)
[2016-12-05] MEDS: CARAFATE PO SCH ×3 (05:11→18:09)
[2016-12-05 07:24] LABS: Anion Gap 11 mmol/L; BUN/Creatinine Ratio 13; Blood Urea Nitrogen 8 mg/dL (7-17); Calcium 7.7 mg/dL (8.4-10.2); Carbon Dioxide 27 mmol/L (22-30); Chloride 106.2 mmol/L (98-107); Cholesterol 112 mg/dL (50-199); Glucose 81 mg/dL (65-100); HDL Cholesterol 46 mg/dL (40-59); LDL Cholesterol,Direct 58 mg/dL (50-130); Potassium 4.4 mmol/L (3.6-5.0); Sodium 140 mmol/L (137-145); Triglycerides 40 mg/dL (2-149)
[2016-12-05] MEDS: PEPCID IV SCH (09:38)
--- NOTE | 2016-12-05 10:58 | Progress Note ---
Assessment and Plan Nausea/vomiting s/p recent laparoscopic revision of gastric bypass Asymptomatic sinus bradycardia normal TSH normal LVEF on echo Bilateral LE edema no evidence of DVT by venous doppler Stable cardiac johnson. Conservative cardiac management. Subjective Date of service: 12/05/16 Principal diagnosis: Bradycardia Interval history: Patient has no cardiac complaints. Objective Vital Signs Temp Pulse Resp BP BP Pulse Ox 12/05/16 07:41 57 L 98 12/05/16 07:40 97.3 F L 53 L 20 104/51 97 12/05/16 04:09 98.2 F 55 L 20 101/58 96 12/05/16 03:52 51 L 96 12/05/16 00:32 98.4 F 78 20 97/57 97 12/04/16 23:58 35 L 98 12/04/16 22:00 18 12/04/16 20:26 98.5 F 50 L 20 106/61 100 12/04/16 17:01 57 L 98 12/04/16 17:00 98.2 F 60 19 134/84 100 - Physical Examination General: No Apparent Distress HEENT: Positive: PERRL Cardiac: Positive: Reg Rate and Rhythm Lungs: Positive: Decreased Breath Sounds Neuro: Positive: Grossly Intact - Labs and Meds Lipids 12/05/16 Range/Units 06:23 Triglycerides 40 (2-149) mg/dL Cholesterol 112 (50-199) mg/dL HDL Cholesterol 46 (40-59) mg/dL Cholesterol/HDL Ratio 2.43 % Comprehensive Metabolic Panel 12/05/16 Range/Units 06:23 Sodium 140 (137-145) mmol/L Potassium 4.4 (3.6-5.0) mmol/L Chloride 106.2 (98-107) mmol/L Carbon Dioxide 27 (22-30) mmol/L BUN 8 (7-17) mg/dL Creatinine 0.6 L (0.7-1.2) mg/dL Glucose 81 (65-100) mg/dL Calcium 7.7 L (8.4-10.2) mg/dL
--- NOTE | 2016-12-05 14:56 | Progress Note ---
Assessment and Plan 46 y.o. F s/p Lap revision of gastric bypass 11/24/16, presented with vomiting: -Vomiting/regurgitation after liquids= resolved. However pt cannot tolerate the full amount of liquids required to maintain her nutrition. A picc line was placed and tpn started. She is awaiting VNS for home TPN infusion. -Pt has been tolerating TPN well. Will continue 84 mls IV TPN. -LE edema: -Pt's LE edema has improved. Instructed again to keep her legs elevated and continue increasing ambulation.. - Bradycardia/lower ext edema: asymptomatic but no prev. hx except for last admission Cardiology consult stated no further work-up needed. TSH wnl (1.44) and Echo unremarkable. EKG- sinus bradycardia GI and DVT proph Disposition: Case management on the case. Currently discussing with [employer] to d/c today. - Patient Problems (1) Dehydration Current Visit: Yes Status: Acute Subjective Narrative: Pt states that she is doing well. She is tolerating TPN. Denies nausea and vomiting. She was able to tolerate broth this morning with no vomiting or regurg. Pt has been increasing ambulation with no problems. LE swelling continues to improve. Objective Vital Signs - 12hr 12/05/16 12/05/16 12/05/16 03:52 04:09 07:40 Temperature 98.2 F 97.3 F L Pulse Rate 51 L 55 L 53 L Respiratory 20 20 Rate Blood Pressure 101/58 104/51 [Right] O2 Sat by Pulse 96 96 97 Oximetry 12/05/16 07:41 Temperature Pulse Rate 57 L Respiratory Rate Blood Pressure [Right] O2 Sat by Pulse 98 Oximetry - General physical appearance Narrative Exam: General: well appearing, NAD Abdomen: soft, nontender, nondistended, no guarding or rigidity, incisions healing well. Extremities: 1+ nonpitting edema from mid-calf to mid-thigh bilaterally - Labs 12/01/16 04:20 12/05/16 06:23 Diabetes panel 12/05/16 Range/Units 06:23 Sodium 140 (137-145) mmol/L Potassium 4.4 (3.6-5.0) mmol/L Chloride 106.2 (98-107) mmol/L Carbon Dioxide 27 (22-30) mmol/L BUN 8 (7-17) mg/dL Creatinine 0.6 L (0.7-1.2) mg/dL Glucose 81 (65-100) mg/dL Calcium 7.7 L (8.4-10.2) mg/dL Triglycerides 40 (2-149) mg/dL HDL Cholesterol 46 (40-59) mg/dL Calcium panel 12/05/16 Range/Units 06:23 Calcium 7.7 L (8.4-10.2) mg/dL Phosphorus 3.50 D (2.5-4.5) mg/dL Pituitary panel 12/05/16 Range/Units 06:23 Sodium 140 (137-145) mmol/L Potassium 4.4 (3.6-5.0) mmol/L Chloride 106.2 (98-107) mmol/L Carbon Dioxide 27 (22-30) mmol/L BUN 8 (7-17) mg/dL Creatinine 0.6 L (0.7-1.2) mg/dL Glucose 81 (65-100) mg/dL Calcium 7.7 L (8.4-10.2) mg/dL Adrenal panel 12/05/16 Range/Units 06:23 Sodium 140 (137-145) mmol/L Potassium 4.4 (3.6-5.0) mmol/L Chloride 106.2 (98-107) mmol/L Carbon Dioxide 27 (22-30) mmol/L BUN 8 (7-17) mg/dL Creatinine 0.6 L (0.7-1.2) mg/dL Glucose 81 (65-100) mg/dL Calcium 7.7 L (8.4-10.2) mg/dL
--- NOTE | 2016-12-05 16:40 | Discharge Summary ---
Providers - Providers Date of Admission: 11/30/16 05:42 Attending physician: ZOEY HOLT 11/30/16 12:03 Consult to Cardiology [CONS] Routine Consulting Provider: Vidhi Lu Reason For Exam: chest pain and bradycardia 11/30/16 21:37 Consult to Physician [CONS] Routine Consulting Provider: PREET VALDIVIA Reason For Exam: bradycarida/edema Place consult to:: [facility] Notified:: NOTIFIED Phone number called:: [phone] Was contact made?: Yes Time called:: 21:45 12/01/16 10:44 Consult to Dietitian/Nutrition [CONS] Routine Physician Instructions: PPN Reason For Exam: poor oral intake Reason for Consult: Write/Manage TPN/PPN 12/01/16 14:46 Consult to PICC Line RN [CONS] Routine Reason For Exam: placed for nutrition (need b4 weekend) Type Line:: PICC 12/02/16 07:59 Consult to Case Management [CONS] Routine Services Needed at Discharge: Home Health Services Notified:: yes If yes, spoke with:: Rocío Comment:: home tpn. Pt to get picc today. goal for dc today/tomorrow Primary care physician: TILE DECORATOR Hospitalization Condition: Stable Hospital course: 46 y.o. F presented to the hospital for vomiting after eating and lower extremity edema. Pt was recently discharged last week. She is s/p laparoscopic revision of gastric bypass 11/22. She tolerated the procedure well. Post operatively she had difficulty swallowing. She often had regurg if liquids after swallowing. This improved over the course of 2-3 days and she was able to be discharged. During her admission her she was able to tolerate liquids more then at home but could not tolerate not liquids to maintain proper nutrition. PICC line was placed and TPN was started. Her hospital stay was prolonged to due to setting up home vns TPN. She gave a different address to the case management that prolonged the stay. She was discharged with her lower extremity edema being improved. Disposition: DC-30 STILL A PATIENT Core Measure Documentation - Palliative Care Palliative Care/ Comfort Measures: Not Applicable - Core Measures Any of the following diagnoses?: none Exam - Physical Exam Narrative exam: no change from day exam - Constitutional Vitals: Temp Pulse Resp BP Pulse Ox 97.5 F L 59 L 18 133/85 99 12/05/16 15:30 12/05/16 15:31 12/05/16 15:30 12/05/16 15:30 12/05/16 15:31 Plan Activity: other (no lifting >15lbs for 4 more weeks) Diet: clear liquids (sugar free clears. ) Wound: keep clean and dry Additional Instructions: TPN via VNS. keep dressing on picc line dry. Follow up with: PRIMARY CHRISTOPHER, [Primary Care Provider] - 3-5 Days ZOEY HOLT MD [Staff Physician] - 10 Days
[2016-12-05] MEDS ORDERED: TPN ADULT 2,016 ML IV SCH (20:00)
[2016-12-06] MEDS: BENADRYL IV PRN ×4 (00:25→19:10)
[2016-12-06] MEDS: CARAFATE PO SCH ×4 (00:25→19:09)
[2016-12-06] MEDS: DILAUDID IV PRN ×3 (00:30→12:44)
[2016-12-06] MEDS: HEPARIN SUB-Q SCH ×3 (06:20→15:37)
[2016-12-06 07:16] LABS: Anion Gap 13 mmol/L; BUN/Creatinine Ratio 20; Blood Urea Nitrogen 10 mg/dL (7-17); Calcium 8.1 mg/dL (8.4-10.2); Carbon Dioxide 27 mmol/L (22-30); Chloride 103.3 mmol/L (98-107); Glucose 89 mg/dL (65-100); Potassium 4.2 mmol/L (3.6-5.0); Sodium 139 mmol/L (137-145)
--- NOTE | 2016-12-06 09:35 | Progress Note ---
Assessment and Plan Nausea/vomiting s/p recent laparoscopic revision of gastric bypass Asymptomatic sinus bradycardia normal TSH normal LVEF on echo Bilateral LE edema no evidence of DVT by venous doppler Stable cardiac johnson for discharge. Will sign off. Subjective Date of service: 12/06/16 Principal diagnosis: Bradycardia Interval history: No cardiac complaints. Objective Vital Signs Temp Pulse Resp Resp BP Pulse Ox 12/06/16 07:50 17 12/06/16 07:20 17 12/06/16 07:03 97.1 F L 47 L 16 119/72 98 12/06/16 04:06 97.9 F 54 L 18 124/66 99 12/06/16 00:30 18 12/05/16 23:26 97.9 F 51 L 18 118/65 99 12/05/16 22:00 16 100 12/05/16 21:35 18 12/05/16 21:05 17 12/05/16 19:14 98.1 F 51 L 18 138/78 99 12/05/16 15:31 59 L 99 12/05/16 15:30 97.5 F L 58 L 18 133/85 100 - Physical Examination General: No Apparent Distress HEENT: Positive: PERRL Cardiac: Positive: Reg Rate and Rhythm Neuro: Positive: Grossly Intact Extremities: Absent: edema - Labs and Meds Comprehensive Metabolic Panel 12/06/16 Range/Units 06:50 Sodium 139 (137-145) mmol/L Potassium 4.2 (3.6-5.0) mmol/L Chloride 103.3 (98-107) mmol/L Carbon Dioxide 27 (22-30) mmol/L BUN 10 (7-17) mg/dL Creatinine 0.5 L (0.7-1.2) mg/dL Glucose 89 (65-100) mg/dL Calcium 8.1 L (8.4-10.2) mg/dL
[2016-12-06] MEDS ORDERED: VASELINE LIP THERAPY TP PRN (10:42)
[2016-12-06] MEDS: PEPCID IV SCH (12:45)
--- NOTE | 2016-12-06 18:00 | Progress Note ---
Assessment and Plan s/p revision of gastric bypass with dysphagia, and improving nausea and vomiting. stable, on TPN for nutrition will d/c home if not tonight, tomorrow continue TPN at home follow up in the office Subjective Date of service: 12/06/16 Patient Reports: Positive: no new complaints (tolerating more liquids but overall amount is still low) Objective Vital Signs - 12hr 12/06/16 12/06/16 12/06/16 07:03 07:20 07:50 Temperature 97.1 F L Pulse Rate 47 L Respiratory 16 17 17 Rate Blood Pressure 119/72 O2 Sat by Pulse 98 Oximetry 12/06/16 14:56 Temperature 97.4 F L Pulse Rate 53 L Respiratory 16 Rate Blood Pressure 99/77 O2 Sat by Pulse 100 Oximetry - General physical appearance well developed, well nourished, no distress - Respiratory normal expansion, normal respiratory effort - Abdomen soft, other (non tender) - Labs 12/01/16 04:20 12/06/16 06:50 Diabetes panel 12/06/16 Range/Units 06:50 Sodium 139 (137-145) mmol/L Potassium 4.2 (3.6-5.0) mmol/L Chloride 103.3 (98-107) mmol/L Carbon Dioxide 27 (22-30) mmol/L BUN 10 (7-17) mg/dL Creatinine 0.5 L (0.7-1.2) mg/dL Glucose 89 (65-100) mg/dL Calcium 8.1 L (8.4-10.2) mg/dL Calcium panel 12/06/16 Range/Units 06:50 Calcium 8.1 L (8.4-10.2) mg/dL Phosphorus 3.80 (2.5-4.5) mg/dL Pituitary panel 12/06/16 Range/Units 06:50 Sodium 139 (137-145) mmol/L Potassium 4.2 (3.6-5.0) mmol/L Chloride 103.3 (98-107) mmol/L Carbon Dioxide 27 (22-30) mmol/L BUN 10 (7-17) mg/dL Creatinine 0.5 L (0.7-1.2) mg/dL Glucose 89 (65-100) mg/dL Calcium 8.1 L (8.4-10.2) mg/dL Adrenal panel 12/06/16 Range/Units 06:50 Sodium 139 (137-145) mmol/L Potassium 4.2 (3.6-5.0) mmol/L Chloride 103.3 (98-107) mmol/L Carbon Dioxide 27 (22-30) mmol/L BUN 10 (7-17) mg/dL Creatinine 0.5 L (0.7-1.2) mg/dL Glucose 89 (65-100) mg/dL Calcium 8.1 L (8.4-10.2) mg/dL
[2016-12-06 19:58] VITALS: BP 109/64
== END 2016-12-06 21:10 | disposition home or self-care (01) | DRG 641 ==
LOC: ED 23:40 → 3B-SURG 11-30 05:42
PROVIDERS: ADMIT Specialist; ATTEND Specialist
PROC: 02HV33Z Insertion of Infusion Device into Superior Vena Cava, Percutaneous Approach (ICD-10-PCS; principal; 2016-12-02)
PROC: 3E0336Z Introduction of Nutritional Substance into Peripheral Vein, Percutaneous Approach (ICD-10-PCS; 2016-12-04)
DX: E86.0 Dehydration (principal); R11.2 Nausea with vomiting, unspecified; R13.10 Dysphagia, unspecified; R60.0 Localized edema; R00.1 Bradycardia, unspecified; K21.9 Gastro-esophageal reflux disease without esophagitis; M17.10 Unilateral primary osteoarthritis, unspecified knee
CPT/HCPCS: 36415; 71010; 74000; 80048; 80053; 80061; 81001; 81025; 82962; 83690; 83735; 83880; 84100; 84443; 85025; 93005; 93010; 93306; 93970; 96374; 96375; J1170; J1200; J1644; J2405; J3411; J3475; J3480; J7030

== ENCOUNTER 2016-12-17 12:58 | Emergency (ER) | payer MEDICAID ==
[2016-12-17 13:22] VITALS: BP 152/68
--- NOTE | 2016-12-17 13:56 | Emergency Department Report ---
ED General Adult HPI - General Chief complaint: Medical Clearance Stated complaint: here to get iv med home health did not come Time Seen by Provider: 12/17/16 13:45 Source: patient, RN notes reviewed, old records reviewed Mode of arrival: Ambulatory Limitations: No Limitations - History of Present Illness Initial comments: pt to triage today w her iv vanc infusing. pt is employee in or of [facility] [employer] she attached her iv per instructions however it was not dripping the rn from triage came to back to inquire pt was recent dc from the hosp home health had been set up by [facility] but they had not come in now over 24 hours this is concerning given it is a doctors order to have. waiting longer could result in a readmit. pt admitted to fast track area. CM called by the RN -: Gradual Improves with: none Worsens with: none Associated Symptoms: denies other symptoms Treatments Prior to Arrival: none - Related Data Home Medications Medication Instructions Recorded Confirmed Last Taken Cetirizine HCl [Zyrtec] 10 mg PO DAILY 11/18/16 12/10/16 11/20/16 Ranitidine HCl [Zantac 150 MG TAB] 150 mg PO BID 11/18/16 12/10/16 11/20/16 Fluticasone [Flonase] 1 spray NS QDAY 11/22/16 12/10/16 11/21/16 Previous Rx's Medication Instructions Recorded Last Taken Type Loratadine [Claritin] 10 mg PO QDAY tablet 12/15/16 Unknown Rx Pantoprazole [Protonix TAB] 40 mg PO BID tablet 12/15/16 Unknown Rx Vancomycin/0.9 % Sod Chloride 1.25 gm IV Q12H 10 Days 12/15/16 Unknown Rx [Vanco 1.25 gm/150 ml-0.9% NaCl] Allergies Allergy/AdvReac Type Severity Reaction Status Date / Time No Known Allergies Allergy Verified 11/30/16 00:38 ED Review of Systems ROS: Stated complaint: NEEDS IV BAG CHANGE Other details as noted in HPI Comment: All other systems reviewed and negative ED Past Medical Hx - Past Medical History Hx Hypertension: No Hx Congestive Heart Failure: No Hx Diabetes: No Hx Deep Vein Thrombosis: No Hx GERD: Yes Hx Liver Disease: No Hx Renal Disease: No Hx Arthritis: Yes (Knees) Hx Seizures: No Hx Asthma: No Hx COPD: No Hx HIV: No - Surgical History Hx Pacemaker: No Hx Internal Defibrillator: No Hx Breast Surgery: Yes (left cyst) Additional Surgical History: Gastric bypass (11/08/2013), gastric bypass revision (11/22/2016) by Dr. Pitt - Social History Smoking Status: Never Smoker Substance Use Type: None - Medications Home Medications: Home Medications Medication Instructions Recorded Confirmed Last Taken Type Cetirizine HCl [Zyrtec] 10 mg PO DAILY 11/18/16 12/10/16 11/20/16 History Ranitidine HCl [Zantac 150 MG TAB] 150 mg PO BID 11/18/16 12/10/16 11/20/16 History Fluticasone [Flonase] 1 spray NS QDAY 11/22/16 12/10/16 11/21/16 History Loratadine [Claritin] 10 mg PO QDAY tablet 12/15/16 Unknown Rx Pantoprazole [Protonix TAB] 40 mg PO BID tablet 12/15/16 Unknown Rx Vancomycin/0.9 % Sod Chloride 1.25 gm IV Q12H 10 Days 12/15/16 Unknown Rx [Vanco 1.25 gm/150 ml-0.9% NaCl] ED Physical Exam - General Limitations: No Limitations General appearance: alert, in no apparent distress - Head Head exam: Present: atraumatic - Eye Eye exam: Present: normal appearance Pupils: Present: normal accommodation - ENT ENT exam: Present: mucous membranes moist - Neck Neck exam: Present: normal inspection - Respiratory Respiratory exam: Present: normal lung sounds bilaterally - Cardiovascular Cardiovascular Exam: Present: regular rate, other (80 on exam) - GI/Abdominal GI/Abdominal exam: Present: soft, normal bowel sounds - Rectal Rectal exam: Present: deferred - Extremities Exam Extremities exam: Present: other (picc lue) - Back Exam Back exam: Present: normal inspection - Neurological Exam Neurological exam: Present: alert, oriented X3, CN II-XII intact, normal gait, reflexes normal - Psychiatric Psychiatric exam: Present: normal affect, normal mood - Skin Skin exam: Present: warm, dry, other (picc as noted) ED Course Vital Signs 12/17/16 13:13 Temperature 98.6 F Pulse Rate 51 L Respiratory 16 Rate Blood Pressure 152/68 O2 Sat by Pulse 100 Oximetry - Reevaluation(s) Reevaluation #1: 12/17/16 15:18 as provider examined the pt the pt is on the phone w home health and they will be out later tonight or early tomorrow AM the home health nurse reported that she had already been in the patients area for the day and could not come back. she said that she didnt know she needed to. pt is employee of [facility] [employer] [facility] and just dc from here with home health arrangement we set up for her - that failed. in triage the RN disconnected the iv vanc and it was at bedside. chart reviewed including dc notes. RN given copy of the chart the nurse refused to give the vanc. I even offered to order new bag from pharmacy and he continued to refuse saying he wanted nothing to do with it. I cleaned the picc port and iv tubing distal connector line w good blood return line flushed dressing clean dry and intact no redness swelling or pain I attached the vanc. that was dispensed to pt per the home health arrangements she had when dc from [facility] the med infused wo difficulty. the pt had the tubing with her which was a roller clamp and to infuse over 1 hours reported to me that the rn flushed the line in triage. I as the provider administered the vanc because it is far more risky to allow this pt to go another 18 hours before getting her vanc. She is already far past due. she was dc from [facility] w sirs. charge nurse notified Reevaluation #2: 12/17/16 1600 vanc infusing wo difficulty pt resting w fam at bedside. Reevaluation #3: 12/17/16 16:33 dc w dc instructions hr 88, rr 16, temp 98.8, sat 100 on ra, bp 148/80 on dc l a picc was flushed and capped technique for care reviewed with pt. she will go home and expects home health in early am I've informed her to call them if they do not come. pt and her daughter verbalize understanding dc by provider at 1635 ED Medical Decision Making - Medical Decision Making see note - Differential Diagnosis home health issue Critical care attestation.: If time is entered above; I have spent that time in minutes in the direct care of this critically ill patient, excluding procedure time. ED Disposition Clinical Impression: Medication administered, Status post PICC central line placement Disposition: DC-01 TO HOME OR SELFCARE Is pt being admited?: No Does the pt Need Aspirin: No Condition: Stable Instructions: Peripherally Inserted Central Catheters and Midline Catheters (ED ) Additional Instructions: call home health if they do not show up as scheduled be sure you let your insurance, md and counter caser know of this issue today care for your picc as instructed meds per routine Referrals: PRIMARY CARE, [Primary Care Provider] - 3-5 Days Forms: Work/School Release Form(ED) Time of Disposition: 15:19
[2016-12-17] MEDS ORDERED: VANCOMYCIN/NS 1 GM/250 ML 1 GM/250 ML BAG IV ONE (15:40)
== END 2016-12-17 16:30 | disposition home or self-care (01) ==
LOC: ED 12:58
DX: Z45.2 Encounter for adjustment and management of vascular access device (principal)
CPT/HCPCS: 99281; J3370

== ENCOUNTER 2017-07-09 07:50 | Emergency (ER) | payer BC, MEDICAID ==
[2017-07-09 07:58] VITALS: BP 136/82
[2017-07-09] MEDS ORDERED: FUL-GLO OP ONE (08:34)
[2017-07-09] MEDS ORDERED: TETRACAINE 0.5% OU PRN (08:34)
--- NOTE | 2017-07-09 08:37 | Emergency Department Report ---
[facility] Chief Complaint: Eye Problems Stated Complaint: PINK EYE Time Seen by Provider: 07/09/17 08:09 Duration: 1 Day Side: Right Severity: mild Symptoms: Yes Eye Itching, Yes Eye Redness, No Eye Pain, No Mucous Drainage, No Purulent Drainage, No Blurred Vision, No Preceding URI, No H/O Allergic Rhinitis , No Contact Lens Use, No Trauma, No Fever, No Headache Other History: This is a 47-year-old female nontoxic, well nourished in appearance, no acute signs of distress presents to the ED with c/o of right eye redness and itching with crusting x1 day. Patient stated it became worse and now her eyelid is swollon and redness as well. Patient denies any trauma to the eye. Patient denies any visual changes or blurry vision. Patient denies any eye pain. Patient denies any fever, chills, nausea, vomiting, chest pain complaints of breath, headache, stiff neck, numbness, tingling. Patient denies any allergies or significant past medical history. ED Review of Systems ROS: Stated complaint: PINK EYE Other details as noted in HPI Constitutional: denies: chills, fever Eyes: eye discharge. denies: eye pain, vision change ENT: denies: ear pain, throat pain Respiratory: denies: cough, shortness of breath, wheezing Cardiovascular: denies: chest pain, palpitations Endocrine: no symptoms reported Gastrointestinal: denies: abdominal pain, nausea, diarrhea Genitourinary: denies: urgency, dysuria, discharge Musculoskeletal: denies: back pain, joint swelling, arthralgia Skin: denies: rash, lesions Neurological: denies: headache, weakness, paresthesias Psychiatric: denies: anxiety, depression Hematological/Lymphatic: denies: easy bleeding, easy bruising ED Past Medical Hx - Past Medical History Hx Hypertension: No Hx Congestive Heart Failure: No Hx Diabetes: No Hx Deep Vein Thrombosis: No Hx GERD: Yes Hx Liver Disease: No Hx Renal Disease: No Hx Arthritis: Yes (Knees) Hx Seizures: No Hx Asthma: No Hx COPD: No Hx HIV: No - Surgical History Hx Pacemaker: No Hx Internal Defibrillator: No Hx Breast Surgery: Yes (left cyst) Additional Surgical History: Gastric bypass (11/08/2013), gastric bypass revision (11/22/2016) by Dr. Pitt - Social History Smoking Status: Never Smoker Substance Use Type: None - Medications Home Medications: Home Medications Medication Instructions Recorded Confirmed Last Taken Type Cetirizine HCl [Zyrtec] 10 mg PO DAILY 11/18/16 12/10/16 11/20/16 History Ranitidine HCl [Zantac 150 MG TAB] 150 mg PO BID 11/18/16 12/10/16 11/20/16 History Fluticasone [Flonase] 1 spray NS QDAY 11/22/16 12/10/16 11/21/16 History Loratadine [Claritin] 10 mg PO QDAY tablet 12/15/16 Unknown Rx Pantoprazole [Protonix TAB] 40 mg PO BID tablet 12/15/16 Unknown Rx Vancomycin/0.9 % Sod Chloride 1.25 gm IV Q12H 10 Days plast..bag 12/15/16 Unknown Rx [Vanco 1.25 gm/150 ml-0.9% NaCl] Azithromycin [Zithromax Z-DINA] 250 mg PO DAILY #6 tablet 07/09/17 Unknown Rx Ciprofloxacin 0.3% (Nf) 2 drops OD TID 7 Days #1 drops 07/09/17 Unknown Rx [Ciprofloxacin OPTH] [facility] Exam - Exam General: Vital signs noted. No distress. Alert and acting appropriately. GENERAL: The patient is a well-developed, well-nourished in no apparent distress. Patient is alert and acting appropriately for age. Alert and oriented 3, no apparent distress, normal gait, atraumatic. HEENT: Head is normocephalic and atraumatic. PERRL, Extraocular muscles are intact. Pupils are equal, round, and reactive to light and accommodation. Rgiht eye crusting with sclera erythema. Right eyelid slight swelling with itching. No periorbital cellulitis noted. No periorbital pain or redness. Nares appeared normal. Mouth is well hydrated and without lesions. Mucous membranes are moist. Posterior pharynx clear of any exudate or lesions. Mouth is well hydrated and without lesions. Tonsils not erythematous or swollen. Uvula midline. Tongue elevated. Mucous members are moist. Posterior pharynx clear, no exudate or lesions. Patent airways. NECK: Supple. No carotid bruits. No lymphadenopathy or thyromegaly.nontender. No meningitic signs are noted. LUNGS: Clear to auscultation. Non labor breathing. No intercostal retractions. Symmetrical with respiration, no wheezing, no rales, or crackles. HEART: Regular rate and rhythm without murmur, rubs or gallops. No reproducible. S1, S2 present, regular rate and rhythm without murmur, no rubs, no gallops. ABDOMEN: Soft, nontender, and nondistended. Positive bowel sounds. No hepatosplenomegaly was noted. No guarding or rebound tenderness, negative epigastric bruit. Negative psoas sign, negative paz sign, negative McBurneys sign EXTREMITIES: Without any cyanosis, clubbing, rash, lesions or edema. Peripheral pulses intact. Capillary refill less than 2 seconds. Full range of motion bilaterally. NEUROLOGIC: Cranial nerves II through XII are grossly intact. Alert and oriented x 3. Normal gait. Symmetrical strength and sensation. Reflexes 2+ throughout. Cerebellar testing normal. GCS score of 15. PSYCHIATRIC: Normal affect with no suicidal or homicidal ideations. Visual acuity without correction: Right eye 20/50; Left eye 20/50; Bilateral eyes 20/50 Eye Exam: Neither Injection, Neither Chemosis, Neither Abnormal Pupil, Neither EOMI, Neither Eye Foreign Body, Neither Lid Foreign Body, Neither Mucous Discharge, Neither Purulent Discharge, Neither Fluorescein Uptake, Neither Fluorescein Uptake (slit lamp), Neither Cell/Flare (slit lamp), Neither Corneal Edema, Neither Photophobia HEENT: No Nasal Congestion, No Pharyngeal Erythema Remainder of HEENT: Normal Lungs: Yes Clear Lung Sounds, Yes Good Air Exchange, No Wheezes, No Stridor, No Cough, No Nasal Flaring, No Retractions, No Use of Accessory Muscles Exam: Under Rob lamp, I used fluorescein and tetracaine to examine cornea for corneal abrasion or foreign body, negative for coronary abrasion or foreign body noted upon exam. Tonopen-14 right eye ED Course Vital Signs 07/09/17 07:54 Temperature 96.8 F L Pulse Rate 64 Respiratory 18 Rate Blood Pressure 136/82 O2 Sat by Pulse 100 Oximetry - Reevaluation(s) Reevaluation #1: 07/09/17 08:38 Patient is speaking in full sentences with no signs of distress noted. Critical care attestation.: If time is entered above; I have spent that time in minutes in the direct care of this critically ill patient, excluding procedure time. ED Disposition Clinical Impression: Conjunctivitis, right eye Qualifiers: Conjunctivitis type: acute Acute conjunctivitis type: bacterial Qualified Code( s): H10.31 - Unspecified acute conjunctivitis, right eye Blepharitis, right eye Qualifiers: Blepharitis type: unspecified type Eyelid: upper Qualified Code(s): H01.001 - Unspecified blepharitis right upper eyelid Disposition: TO HOME OR SELFCARE Is pt being admited?: No Does the pt Need Aspirin: No Condition: Stable Instructions: Blepharitis (ED), Conjunctivitis (ED) Additional Instructions: Follow-up with a stunt woman and primary care doctor in 3-5 days or if symptoms worsen and continue return to emergency room as soon as possible. Prescriptions: Azithromycin [Zithromax Z-DINA] 250 mg PO DAILY #6 tablet Ciprofloxacin 0.3% (Nf) [Ciprofloxacin OPTH] 2 drops OD TID 7 Days #1 drops Referrals: PRIMARY CAREMD [Primary Care Provider] - 3-5 Days GEORGIE TOMLINSON MD [Staff Physician] - 3-[address] MD [Staff Physician] - 3-5 Days [facility] [Outside] - 3-5 Days [facility] [Outside] - 3-5 Days Forms: Work/School Release Form(ED)
== END 2017-07-09 08:50 | disposition home or self-care (01) ==
LOC: ED 07:50
DX: H10.31 Unspecified acute conjunctivitis, right eye (principal); H01.001 Unspecified blepharitis right upper eyelid; K21.9 Gastro-esophageal reflux disease without esophagitis; M19.90 Unspecified osteoarthritis, unspecified site
CPT/HCPCS: 99283

== ENCOUNTER 2017-09-11 10:41 | Emergency (ER) | payer BC ==
[2017-09-11 11:15] VITALS: BP 147/82
[2017-09-11] MEDS ORDERED: MOTRIN PO ONE (12:25)
[2017-09-11] MEDS ORDERED: BOOSTRIX IM ONE (12:25)
[2017-09-11] MEDS ORDERED: THERMAZENE 50 GRAM TP ONE (12:25)
--- NOTE | 2017-09-11 12:30 | Emergency Department Report ---
Burn HPI - History Stated Complaint: RT HAND PAIN Chief Complaint: Burn/Smoke Inhalation Time Seen by Provider: 09/11/17 12:15 Duration of Burn: 1 Day Burn Location: Other (right hand) Burn Etiology: Accidental Pain: None Tetanus Status: Not up to Date Symptoms:: Yes Blistering, Yes Able to Tolerate Fluids, No Malaise, No Myalgias , No Fever, No Vomiting Other History: This is a 47-year-old female nontoxic in appearance with no signs of distress visit ER with right hand burn. Patient stated that last night she was cooking increase burn her hand. Patient denies any joint swelling or joint redness. Patient denies any fever, chills, nausea, vomiting, chest pain, shortness of breath, headache, stiff neck, numbness or tingling. Patient denies any decreased range of motion or sensation. Patient denies any allergies or significant past medical history. - Home Meds and Allergies Home Medications: Home Medications Medication Instructions Recorded Confirmed Last Taken Acetaminophen [Tylenol Extra 500 mg PO PRN PRN 07/12/17 07/25/17 1 Week Ago Strength] ~07/18/17 Cholestyramine/Aspartame 4 gm PO PRN PRN 07/12/17 07/25/17 2 Months Ago [Cholestyramine Light Packet] ~05/25/17 Cyanocobalamin [Vitamin B-12] 1,000 mcg IM QMONTH 07/12/17 07/25/17 2 Weeks Ago ~07/11/17 Diphenoxylate HCl/Atropine 1 tab PO DAILY 07/12/17 07/24/17 07/24/17 [Diphenoxylate-Atrop 2.5-0.025] Furosemide [Lasix TAB] 20 mg PO DAILY 07/12/17 07/25/17 2 Weeks Ago ~07/11/17 traZODone [Desyrel] 50 mg PO QHS 07/12/17 07/25/17 2 Weeks Ago ~07/11/17 diphenhydrAMINE [Benadryl CAP] 25 mg PO Q8HR PRN 07/25/17 07/25/17 07/24/17 Previous Rx's Medication Instructions Recorded Last Taken Type Loratadine [Claritin] 10 mg PO QDAY tablet 12/15/16 4 Days Ago Rx ~07/21/17 Potassium Chloride [K-Dur] 10 meq PO QDAY #30 tablet 07/19/17 07/24/17 Rx Acetaminophen/Codeine [Tylenol 1 tab PO Q6H PRN #12 tab 09/11/17 Unknown Rx /Codeine # 3 tab] Silver Sulfadiazine [Silvadene] 25 gm TP BID #1 cream..g. 09/11/17 Unknown Rx Sulfamethoxazole/Trimethoprim 1 each PO BID #14 tablet 09/11/17 Unknown Rx [Bactrim DS TAB] Allergies/Adverse Reactions: Allergies Allergy/AdvReac Type Severity Reaction Status Date / Time No Known Allergies Allergy Verified 07/24/17 16:29 ED Review of Systems ROS: Stated complaint: RT HAND PAIN Other details as noted in HPI Constitutional: denies: chills, fever Eyes: denies: eye pain, eye discharge, vision change ENT: denies: ear pain, throat pain Respiratory: denies: cough, shortness of breath, wheezing Cardiovascular: denies: chest pain, palpitations Endocrine: no symptoms reported Gastrointestinal: denies: abdominal pain, nausea, diarrhea Genitourinary: denies: urgency, dysuria, discharge Musculoskeletal: denies: back pain, joint swelling, arthralgia Skin: denies: rash, lesions Neurological: denies: headache, weakness, paresthesias Psychiatric: denies: anxiety, depression Hematological/Lymphatic: denies: easy bleeding, easy bruising ED Past Medical Hx - Past Medical History Hx Hypertension: No Hx Congestive Heart Failure: No Hx Diabetes: No Hx Deep Vein Thrombosis: No Hx GERD: Yes Hx Liver Disease: No Hx Renal Disease: No Hx Arthritis: Yes (Knees) Hx Seizures: No Hx Asthma: No Hx COPD: No Hx HIV: No - Surgical History Hx Pacemaker: No Hx Internal Defibrillator: No Hx Breast Surgery: Yes (left cyst) Additional Surgical History: Gastric bypass (11/08/2013), gastric bypass revision (11/22/2016) by Dr. Pitt,reversal 07/2017 - Social History Smoking Status: Never Smoker Substance Use Type: None - Medications Home Medications: Home Medications Medication Instructions Recorded Confirmed Last Taken Type Loratadine [Claritin] 10 mg PO QDAY tablet 12/15/16 07/25/17 4 Days Ago Rx ~07/21/17 Acetaminophen [Tylenol Extra 500 mg PO PRN PRN 07/12/17 07/25/17 1 Week Ago History Strength] ~07/18/17 Cholestyramine/Aspartame 4 gm PO PRN PRN 07/12/17 07/25/17 2 Months Ago History [Cholestyramine Light Packet] ~05/25/17 Cyanocobalamin [Vitamin B-12] 1,000 mcg IM QMONTH 07/12/17 07/25/17 2 Weeks Ago History ~07/11/17 Diphenoxylate HCl/Atropine 1 tab PO DAILY 07/12/17 07/24/17 07/24/17 History [Diphenoxylate-Atrop 2.5-0.025] Furosemide [Lasix TAB] 20 mg PO DAILY 07/12/17 07/25/17 2 Weeks Ago History ~07/11/17 traZODone [Desyrel] 50 mg PO QHS 07/12/17 07/25/17 2 Weeks Ago History ~07/11/17 Potassium Chloride [K-Dur] 10 meq PO QDAY #30 tablet 07/19/17 07/24/17 07/24/17 Rx diphenhydrAMINE [Benadryl CAP] 25 mg PO Q8HR PRN 07/25/17 07/25/17 07/24/17 History Acetaminophen/Codeine [Tylenol 1 tab PO Q6H PRN #12 tab 09/11/17 Unknown Rx /Codeine # 3 tab] Silver Sulfadiazine [Silvadene] 25 gm TP BID #1 cream..g. 09/11/17 Unknown Rx Sulfamethoxazole/Trimethoprim 1 each PO BID #14 tablet 09/11/17 Unknown Rx [Bactrim DS TAB] Exam - Exam General: Vital signs noted. No distress. Alert and acting appropriately. GENERAL: The patient is a well-developed, well-nourished in no apparent distress. Patient is alert and acting appropriately for age. Alert and oriented 3, no apparent distress, normal gait, atraumatic. HEENT: Head is normocephalic and atraumatic. PERRL, Extraocular muscles are intact. Pupils are equal, round, and reactive to light and accommodation. Nares appeared normal. Mouth is well hydrated and without lesions. Mucous membranes are moist. Posterior pharynx clear of any exudate or lesions. Mouth is well hydrated and without lesions. Tonsils not erythematous or swollen. Uvula midline. Tongue elevated. Mucous members are moist. Posterior pharynx clear, no exudate or lesions. Patent airways. NECK: Supple. No carotid bruits. No lymphadenopathy or thyromegaly.nontender. No meningitic signs are noted. LUNGS: Clear to auscultation. Non labor breathing. No intercostal retractions. Symmetrical with respiration, no wheezing, no rales, or crackles. HEART: Regular rate and rhythm without murmur, rubs or gallops. No reproducible. S1, S2 present, regular rate and rhythm without murmur, no rubs, no gallops. ABDOMEN: Soft, nontender, and nondistended. Positive bowel sounds. No hepatosplenomegaly was noted. No guarding or rebound tenderness, negative epigastric bruit. Negative psoas sign, negative paz sign, negative McBurneys sign EXTREMITIES: Without any cyanosis, clubbing, rash, lesions or edema. Peripheral pulses intact. Capillary refill less than 2 seconds. Full range of motion bilaterally. NEUROLOGIC: Cranial nerves II through XII are grossly intact. Alert and oriented x 3. Normal gait. Symmetrical strength and sensation. Reflexes 2+ throughout. Cerebellar testing normal. GCS score of 15. PSYCHIATRIC: Normal affect with no suicidal or homicidal ideations. HEENT: Yes Moist Mucous Membranes, No Conjuctival Injection, No Corneal Edema Full Body Front + Back: 1 - 2 cm superficial burn with blister Skin: Yes Blistering, Yes Tenderness, No Erythroderma, No Edema Exam: Yes Normal Heart Sounds, No Respiratory Distress, No Sensory Deficits, No Musculoskeletal Pain ED Course Vital Signs 09/11/17 11:12 Temperature 97.4 F L Pulse Rate 59 L Respiratory 18 Rate Blood Pressure 147/82 O2 Sat by Pulse 99 Oximetry - Reevaluation(s) Reevaluation #1: 09/11/17 12:28 Patient is speaking in full sentences with no signs of distress noted. ED Medical Decision Making - Medical Decision Making This is a 47-year-old female presents with a burn superficial. Patient stable and was examined by me. The blister has been debrided and some slow fluid came out. Silvadene and sterile dressing has been applied. Patient was educated on proper wound care. Patient is discharged with Bactrim and codeine was instructed to not operate any machinery while taking Tylenol with codeine as it may possibly cause drowsiness. Patient also received Tetanus in the ED. Patient was referred to f/u with burn center unit in [place]. At time of discharge, the patient does not seem toxic or ill in appearance. No acute signs of distress noted. Patient agrees to discharge treatment plan of care. No further questions noted by the patient. Critical care attestation.: If time is entered above; I have spent that time in minutes in the direct care of this critically ill patient, excluding procedure time. ED Disposition Clinical Impression: Superficial burn of right hand Qualifiers: Encounter type: initial encounter Burn of hand location: unspecified site Qualified Code(s): T23.101A - Burn of first degree of right hand, unspecified site, initial encounter Disposition: TO HOME OR SELFCARE Is pt being admited?: No Does the pt Need Aspirin: No Condition: Stable Instructions: Sulfamethoxazole/Trimethoprim (By mouth), Acetaminophen/Codeine ( By mouth), Superficial Burn (ED) Additional Instructions: Follow-up with a primary care doctor/[place] burn center unit in 2-3 days or if symptoms worsen and continue return to emergency room as soon as possible. Do not operate any machinery while taking Tylenol with codeine as this may cause drowsiness. Prescriptions: Acetaminophen/Codeine [Tylenol /Codeine # 3 tab] 1 tab PO Q6H PRN #12 tab PRN Reason: Pain , Severe (7-10) Silver Sulfadiazine [Silvadene] 25 gm TP BID #1 cream..g. Sulfamethoxazole/Trimethoprim [Bactrim DS TAB] 1 each PO BID #14 tablet Referrals: [facility] [Outside] - 3-5 Days [facility] [Outside] - 2-3 Days PRIMARY CAREMD [Primary Care Provider] - 2-[address] MD [Staff Physician] - 2-3 Days Forms: Work/School Release Form(ED)
[2017-09-11] MEDS ORDERED: TYLENOL ONE (12:33)
[2017-09-11] MEDS ORDERED: TYLENOL PO ONE (12:35)
== END 2017-09-11 13:01 | disposition home or self-care (01) ==
LOC: ED 10:41
DX: T23.201A Burn of second degree of right hand, unspecified site, initial encounter (principal); K21.9 Gastro-esophageal reflux disease without esophagitis; M19.90 Unspecified osteoarthritis, unspecified site; Z79.899 Other long term (current) drug therapy; X02.0XXA Exposure to flames in controlled fire in building or structure, initial encounter; Y93.G3 Activity, cooking and baking; Y99.8 Other external cause status; Y92.008 Other place in unspecified non-institutional (private) residence as the place of occurrence of the external cause
CPT/HCPCS: 90471; 90715

== ENCOUNTER 2018-10-13 06:25 | Emergency (ER) | payer BC ==
[2018-10-13 06:40] VITALS: BP 126/81
[2018-10-13] MEDS ORDERED: DECADRON IM STA (07:50)
--- NOTE | 2018-10-13 07:50 | Emergency Department Report ---
Minor Respiratory - HPI Chief Complaint: Skin Rash Stated Complaint: ALLERGIC REACTION Time Seen by Provider: 10/13/18 07:25 Duration: 1 week Pain Location: Facial (pressure), Throat Severity: moderate (07/16) Minor Respiratory: Yes Rhinorrhea ( congestion), Yes Sore Throat, Yes Able to Tolerate Fluids, Yes Cough (dry cough), No Ear Pain, No Sick Contacts, No Hemoptysis, No Chest Pain, No Shortness of Breath, No Fever Other History: History of sinus infection. Tried [id number] medication over the last week which is not helping. Popping sound in the ears. And 07/16 taking qraz-wbu-[id number] medication with minimal relief. Facial pressure and sore throat is pain with swallowing pupil. Denies any shortness of breath or chest pain. Denies any neck pain or stiffness. Niacin headache. Denies any fever or chills ED Review of Systems ROS: Stated complaint: ALLERGIC REACTION Other details as noted in HPI Constitutional: denies: chills, fever Eyes: denies: eye pain, eye discharge ENT: throat pain, congestion, other (facial pressure) Respiratory: cough. denies: shortness of breath, SOB with exertion, SOB at rest, stridor, wheezing Cardiovascular: denies: chest pain, palpitations, edema, syncope Gastrointestinal: denies: nausea, vomiting Musculoskeletal: denies: back pain, arthralgia Skin: pruritus. denies: rash Neurological: denies: headache ED Past Medical Hx - Past Medical History Previous Medical History?: Yes Hx Hypertension: No Hx Congestive Heart Failure: No Hx Diabetes: No Hx Deep Vein Thrombosis: No Hx GERD: Yes Hx Liver Disease: No Hx Renal Disease: No Hx Arthritis: Yes (Knees) Hx Seizures: No Hx Asthma: No Hx COPD: No Hx HIV: No - Surgical History Past Surgical History?: Yes Hx Pacemaker: No Hx Internal Defibrillator: No Hx Breast Surgery: Yes (left cyst) Additional Surgical History: Gastric bypass (11/08/2013), gastric bypass revision (11/22/2016) by Dr. Pitt,lavell 07/2017 - Family History Family history: no significant - Social History Smoking Status: Never Smoker Substance Use Type: None - Medications Home Medications: Home Medications Medication Instructions Recorded Confirmed Last Taken Type Loratadine [Claritin] 10 mg PO QDAY tablet 12/15/16 07/25/17 4 Days Ago Rx ~07/21/17 Acetaminophen [Tylenol Extra 500 mg PO PRN PRN 07/12/17 07/25/17 1 Week Ago History Strength] ~07/18/17 Cholestyramine/Aspartame 4 gm PO PRN PRN 07/12/17 07/25/17 2 Months Ago History [Cholestyramine Light Packet] ~05/25/17 Cyanocobalamin [Vitamin B-12] 1,000 mcg IM QMONTH 07/12/17 07/25/17 2 Weeks Ago History ~07/11/17 Diphenoxylate HCl/Atropine 1 tab PO DAILY 07/12/17 07/24/17 07/24/17 History [Diphenoxylate-Atrop 2.5-0.025] Furosemide [Lasix TAB] 20 mg PO DAILY 07/12/17 07/25/17 2 Weeks Ago History ~07/11/17 traZODone [Desyrel] 50 mg PO QHS 07/12/17 07/25/17 2 Weeks Ago History ~07/11/17 Potassium Chloride [K-Dur] 10 meq PO QDAY #30 tablet 07/19/17 07/24/17 07/24/17 Rx diphenhydrAMINE [Benadryl CAP] 25 mg PO Q8HR PRN 07/25/17 07/25/17 07/24/17 History Acetaminophen/Codeine [Tylenol 1 tab PO Q6H PRN #12 tab 09/11/17 Unknown Rx /Codeine # 3 tab] Silver Sulfadiazine [Silvadene] 25 gm TP BID #1 cream..g. 09/11/17 Unknown Rx Sulfamethoxazole/Trimethoprim 1 each PO BID #14 tablet 09/11/17 Unknown Rx [Bactrim DS TAB] Cipro/Dexameth 0.3/0.1% [Ciprodex 4 drops OT BID 10 Days #1 bottle 12/06/17 Unknown Rx OTIC] Ibuprofen [Ibuprofen 800] 800 mg PO TID PRN #30 tablet 12/06/17 Unknown Rx Amoxicillin/K Clav Tab [Augmentin 1 tab PO Q12HR #20 tab 10/13/18 Unknown Rx 875MG TAB] Cetirizine HCl [ZyrTEC] 10 mg PO QAM 14 Days #14 capsule 10/13/18 Unknown Rx Fluticasone [Flonase] 1 spray NS QDAY 14 Days #1 bottle 10/13/18 Unknown Rx Prednisone [predniSONE 10 mg 10 mg PO .TAPER #1 tab.ds.pk 10/13/18 Unknown Rx (6-Day Pack, 21 Tabs)] guaiFENesin/CODEINE [Robitussin AC] 10 ml PO QHS PRN #70 oral.liqd 10/13/18 Unknown Rx Minor Respiratory Exam - Exam General: Vital signs noted. No distress. Alert and acting appropriately. This is a 48-year-old female well-nourished well-developed in no acute distress HEENT: Yes Moist Mucous Membranes, Yes Rhinorrhea (nasal turbinates hypertrophy), Yes Frontal Tenderness, Yes Maxillary Tenderness, No Pharyngeal Erythema, No Pharyngeal Exudates, No Conjuctival Injection Ear: Left EAC Discharge, Neither TM Bulge (Bilateral TM congested), Neither TM Erythema, Neither EAC Pain Neck: Yes Supple ( normal range of motion and no C-spine tenderness), No Adenopathy Lungs: Yes Good Air Exchange, Yes Cough (cough), No Wheezes, No Ronchi, No Stridor, No Labored Respirations, No Retractions, No Use of Accessory Muscles, No Other Abnormal Lung Sounds Heart: Yes Regular, No Murmur Abdomen: Yes Normal Bowel Sounds, No Tenderness, No Peritoneal Signs Skin: No Rash, No Edema Neurologic: Alert and oriented, no deficits. Musculoskeletal: Unremarkable. No cce. + 2 pulses in all extremities, no neurovascular compromise ED Course Vital Signs 10/13/18 06:38 Temperature 97.7 F Pulse Rate 69 Respiratory 18 Rate Blood Pressure 126/81 O2 Sat by Pulse 99 Oximetry - Reevaluation(s) Reevaluation #1: 10/13/18 08:06 Patient received Benadryl 25 mg IM for itching and Decadron 10 mg IM. No adverse reaction noted ED Medical Decision Making - Medical Decision Making This is a 48-year-old female here for sinus pain and pressure with dry cough. She was found to have acute bacterial rhinosinusitis and was treated in the emergency room with Decadron and Benadryl. Physical findings consistent with bacterial sinusitis. I explained to patient her diagnosis. I also explained to her that this I will send her home on steroids, antibiotic and nasal spray. She does have a primary care physician so I explained to her she needs to follow-up in 2-3 days. She voiced understanding and discharged home in stable condition with prescription for Flonase, Zyrtec, guaifenesin with codeine, Augmentin and Medrol Dosepak. Vital signs are stable and she is afebrile and in no acute distress Critical care attestation.: If time is entered above; I have spent that time in minutes in the direct care of this critically ill patient, excluding procedure time. ED Disposition Clinical Impression: Acute bacterial rhinosinusitis Disposition: TO HOME OR SELFCARE Is pt being admited?: No Does the pt Need Aspirin: No Condition: Stable Instructions: Acute Bacterial Rhinosinusitis (ED) Additional Instructions: Follow-up a primary care physician in 2-3 days Take medication as prescribed Increasing fluid intake If condition worsens, return to the emergency room Referrals: PRIMARY CARE, [Primary Care Provider] - 2-3 Days Forms: Work/School Release Form(ED), Accompanied Note
[2018-10-13] MEDS ORDERED: BENADRYL PO NR (08:00)
== END 2018-10-13 08:38 | disposition home or self-care (01) ==
LOC: ED 06:25 → EEVIPCON 06:25 → ED 08:38
DX: J01.10 Acute frontal sinusitis, unspecified (principal); J01.00 Acute maxillary sinusitis, unspecified; B96.89 Other specified bacterial agents as the cause of diseases classified elsewhere; M19.90 Unspecified osteoarthritis, unspecified site; K21.9 Gastro-esophageal reflux disease without esophagitis; Z98.890 Other specified postprocedural states; Z79.899 Other long term (current) drug therapy
CPT/HCPCS: 96372; 99281; J1100

== ENCOUNTER 2018-12-27 14:39 | Inpatient (IN) | payer SELFPAY ==
--- NOTE | 2018-12-27 15:48 | Event Note ---
ED Screening Note Date of service: 12/27/18 Time: 15:42 ED Screening Note: 48 y o f presents with abd pain right sided towards flank denies fever, vag d/c or n/v no relief with tylenol hx of gastric by pass and reversal x last year This initial assessment/diagnostic orders/clinical plan/treatment(s) is/are subject to change based on patients health status, clinical progression and re- assessment by fellow clinical providers in the ED. Further treatment and workup at subsequent clinical providers discretion. Patient/guardian urged not to elope from the ED as their condition may be serious if not clinically assessed and managed. Initial orders include: ua, labs,
[2018-12-27 16:40] LABS: Bilirubin,Urine NEG (Negative); Blood,Urine NEG (Negative); Color,Urine Straw (Yellow); Protein,Urine <15 mg/dL mg/dL (Negative); Urobilinogen,Urine < 2.0 mg/dL (<2.0); WBC,Urine < 1.0 /HPF (0.0-6.0)
[2018-12-27 17:31] LABS: Alanine Aminotransferase 12 units/L (7-56); Albumin 4.1 g/dL (3.9-5); BUN/Creatinine Ratio 25; Blood Urea Nitrogen 15 mg/dL (7-17); Hemolysis Index 4
[2018-12-27 17:34] LABS: Basophils % (Auto) 0.5 % (0.0-1.8); Eosinophils # (Auto) 0.1 K/mm3 (0.0-0.4); Eosinophils % (Auto) 0.9 % (0.0-4.3); Hemoglobin 9.7 gm/dl (10.1-14.3); Lymphocytes # (Auto) 2.3 K/mm3 (1.2-5.4); Mean Corpuscular HGB Conc 31 % (30-34); Mean Corpuscular Volume 80 fl (79-97); Monocytes # (Auto) 0.5 K/mm3 (0.0-0.8); Monocytes % (Auto) 6.5 % (0.0-7.3); Platelet Count 290 K/mm3 (140-440)
--- NOTE | 2018-12-27 18:00 | Emergency Department Report ---
ED Abdominal Pain HPI - General Chief Complaint: Abdominal Pain Stated Complaint: LOWER ABD PAIN Time Seen by Provider: 12/27/18 17:54 Source: patient Mode of arrival: Ambulatory Limitations: No Limitations - History of Present Illness Initial Comments: Is a 48-year-old female presents to emergency department with chief complaint of right lower quadrant abdominal pain that started 2 days ago. Patient rates the severity of her pain is a 1010 describes it as stabbing radiating to her umbilicus. She reports decreased appetite, denies nausea, vomiting, diarrhea, fever, chills, night sweats, headache dizziness, blurred vision, vaginal bleeding, vaginal discharge, dysuria, urinary frequency urinary urgency. She denies any associated back pain. She states she usually takes Lasix for fluid retention but has been out and states she is returning fluid. She denies any past medical history of congestive heart failure, renal failure, liver failure. She has a past medical history of arthritis in her knees as well as GERD. She has past surgical history cyst removal from her left breast, gastric bypass in 2013 with a revision [place] [address] Pitt and a reversal in 2018. She is C- section 2. MD Complaint: abdominal pain Location: RLQ Migration to: no migration Severity: moderate Severity scale (0 -10): 10 Quality: stabbing Consistency: constant Improves With: nothing Worsens With: nothing Associated Symptoms: denies: nausea, vomiting, diarrhea, chills, constipation, dysuria, hematemesis, melena, hematuria, anorexia, syncope - Related Data Home Medications Medication Instructions Recorded Confirmed Last Taken Acetaminophen [Tylenol Extra 500 mg PO PRN PRN 07/12/17 07/25/17 1 Week Ago Strength] ~07/18/17 Cholestyramine/Aspartame 4 gm PO PRN PRN 07/12/17 07/25/17 2 Months Ago [Cholestyramine Light Packet] ~05/25/17 Cyanocobalamin [Vitamin B-12] 1,000 mcg IM QMONTH 07/12/17 07/25/17 2 Weeks Ago ~07/11/17 Diphenoxylate HCl/Atropine 1 tab PO DAILY 07/12/17 07/24/17 07/24/17 [Diphenoxylate-Atrop 2.5-0.025] Furosemide [Lasix TAB] 20 mg PO DAILY 07/12/17 07/25/17 2 Weeks Ago ~07/11/17 traZODone [Desyrel] 50 mg PO QHS 07/12/17 07/25/17 2 Weeks Ago ~07/11/17 diphenhydrAMINE [Benadryl CAP] 25 mg PO Q8HR PRN 07/25/17 07/25/17 07/24/17 Previous Rx's Medication Instructions Recorded Last Taken Type Loratadine [Claritin] 10 mg PO QDAY tablet 12/15/16 4 Days Ago Rx ~07/21/17 Potassium Chloride [K-Dur] 10 meq PO QDAY #30 tablet 07/19/17 07/24/17 Rx Acetaminophen/Codeine [Tylenol 1 tab PO Q6H PRN #12 tab 09/11/17 Unknown Rx /Codeine # 3 tab] Silver Sulfadiazine [Silvadene] 25 gm TP BID #1 cream..g. 09/11/17 Unknown Rx Sulfamethoxazole/Trimethoprim 1 each PO BID #14 tablet 09/11/17 Unknown Rx [Bactrim DS TAB] Cipro/Dexameth 0.3/0.1% [Ciprodex 4 drops OT BID 10 Days #1 bottle 12/06/17 Unknown Rx OTIC] Ibuprofen [Ibuprofen 800] 800 mg PO TID PRN #30 tablet 12/06/17 Unknown Rx Amoxicillin/K Clav Tab [Augmentin 1 tab PO Q12HR #20 tab 10/13/18 Unknown Rx 875MG TAB] Cetirizine HCl [ZyrTEC] 10 mg PO QAM 14 Days #14 capsule 10/13/18 Unknown Rx Fluticasone [Flonase] 1 spray NS QDAY 14 Days #1 bottle 10/13/18 Unknown Rx Prednisone [predniSONE 10 mg 10 mg PO .TAPER #1 tab.ds.pk 10/13/18 Unknown Rx (6-Day Pack, 21 Tabs)] guaiFENesin/CODEINE [Robitussin AC] 10 ml PO QHS PRN #70 oral.liqd 10/13/18 Unknown Rx Allergies Allergy/AdvReac Type Severity Reaction Status Date / Time No Known Allergies Allergy Verified 07/24/17 16:29 ED Review of Systems ROS: Stated complaint: LOWER ABD PAIN Other details as noted in HPI Comment: All other systems reviewed and negative Constitutional: denies: chills, fever Eyes: denies: eye pain, eye discharge, vision change ENT: denies: ear pain, throat pain Respiratory: denies: cough, shortness of breath, wheezing Cardiovascular: denies: chest pain, palpitations Endocrine: no symptoms reported Gastrointestinal: as per HPI, abdominal pain. denies: nausea, diarrhea Genitourinary: denies: urgency, dysuria, discharge Musculoskeletal: denies: back pain, joint swelling, arthralgia Skin: denies: rash, lesions Neurological: denies: headache, weakness, paresthesias Psychiatric: denies: anxiety, depression Hematological/Lymphatic: denies: easy bleeding, easy bruising ED Past Medical Hx - Past Medical History Previous Medical History?: Yes Hx Hypertension: No Hx Congestive Heart Failure: No Hx Diabetes: No Hx Deep Vein Thrombosis: No Hx GERD: Yes Hx Liver Disease: No Hx Renal Disease: No Hx Arthritis: Yes (Knees) Hx Seizures: No Hx Asthma: No Hx COPD: No Hx HIV: No - Surgical History Past Surgical History?: Yes Hx Pacemaker: No Hx Internal Defibrillator: No Hx Breast Surgery: Yes (left cyst) Additional Surgical History: Gastric bypass (11/08/2013), gastric bypass revision (11/22/2016) by Dr. Pitt,reversal 07/2017. x 2 - Social History Smoking Status: Never Smoker Substance Use Type: None - Medications Home Medications: Home Medications Medication Instructions Recorded Confirmed Last Taken Type Loratadine [Claritin] 10 mg PO QDAY tablet 12/15/16 07/25/17 4 Days Ago Rx ~07/21/17 Acetaminophen [Tylenol Extra 500 mg PO PRN PRN 07/12/17 07/25/17 1 Week Ago History Strength] ~07/18/17 Cholestyramine/Aspartame 4 gm PO PRN PRN 07/12/17 07/25/17 2 Months Ago History [Cholestyramine Light Packet] ~05/25/17 Cyanocobalamin [Vitamin B-12] 1,000 mcg IM QMONTH 07/12/17 07/25/17 2 Weeks Ago History ~07/11/17 Diphenoxylate HCl/Atropine 1 tab PO DAILY 07/12/17 07/24/17 07/24/17 History [Diphenoxylate-Atrop 2.5-0.025] Furosemide [Lasix TAB] 20 mg PO DAILY 07/12/17 07/25/17 2 Weeks Ago History ~07/11/17 traZODone [Desyrel] 50 mg PO QHS 07/12/17 07/25/17 2 Weeks Ago History ~07/11/17 Potassium Chloride [K-Dur] 10 meq PO QDAY #30 tablet 07/19/17 07/24/17 07/24/17 Rx diphenhydrAMINE [Benadryl CAP] 25 mg PO Q8HR PRN 07/25/17 07/25/17 07/24/17 History Acetaminophen/Codeine [Tylenol 1 tab PO Q6H PRN #12 tab 09/11/17 Unknown Rx /Codeine # 3 tab] Silver Sulfadiazine [Silvadene] 25 gm TP BID #1 cream..g. 09/11/17 Unknown Rx Sulfamethoxazole/Trimethoprim 1 each PO BID #14 tablet 09/11/17 Unknown Rx [Bactrim DS TAB] Cipro/Dexameth 0.3/0.1% [Ciprodex 4 drops OT BID 10 Days #1 bottle 12/06/17 Unknown Rx OTIC] Ibuprofen [Ibuprofen 800] 800 mg PO TID PRN #30 tablet 12/06/17 Unknown Rx Amoxicillin/K Clav Tab [Augmentin 1 tab PO Q12HR #20 tab 10/13/18 Unknown Rx 875MG TAB] Cetirizine HCl [ZyrTEC] 10 mg PO QAM 14 Days #14 capsule 10/13/18 Unknown Rx Fluticasone [Flonase] 1 spray NS QDAY 14 Days #1 bottle 10/13/18 Unknown Rx Prednisone [predniSONE 10 mg 10 mg PO .TAPER #1 tab.ds.pk 10/13/18 Unknown Rx (6-Day Pack, 21 Tabs)] guaiFENesin/CODEINE [Robitussin AC] 10 ml PO QHS PRN #70 oral.liqd 10/13/18 Unknown Rx ED Physical Exam - General Limitations: No Limitations General appearance: alert, in no apparent distress (well-appearing) - Head Head exam: Present: atraumatic, normocephalic - Eye Eye exam: Present: normal appearance, PERRL, EOMI - ENT ENT exam: Present: normal exam, mucous membranes moist - Neck Neck exam: Present: normal inspection, full ROM - Respiratory Respiratory exam: Present: normal lung sounds bilaterally. Absent: respiratory distress, wheezes, rales, rhonchi, stridor - Cardiovascular Cardiovascular Exam: Present: regular rate, normal rhythm, normal heart sounds. Absent: systolic murmur, diastolic murmur, rubs, gallop - GI/Abdominal GI/Abdominal exam: Present: soft, tenderness (tenderness to the right lower quadrant), normal bowel sounds. Absent: distended, guarding, rebound, rigid - Rectal Rectal exam: Present: deferred - Extremities Exam Extremities exam: Present: normal inspection, full ROM. Absent: tenderness - Back Exam Back exam: Present: normal inspection, full ROM. Absent: CVA tenderness (R), CVA tenderness (L) - Neurological Exam Neurological exam: Present: alert, oriented X3, normal gait - Psychiatric Psychiatric exam: Present: normal affect, normal mood - Skin Skin exam: Present: warm, dry, intact, normal color. Absent: rash ED Course Vital Signs 12/27/18 15:42 Temperature 98.4 F Pulse Rate 93 H Respiratory 16 Rate Blood Pressure 115/66 O2 Sat by Pulse 99 Oximetry - Reevaluation(s) Reevaluation #1: 12/27/18 18:19 RLQ pain, CT ordered 12/27/18 19:44 - Consultations Consultation #1: 12/27/18 19:[address] Garnica (General Surgery) She will see the patient. Requests [facility] to admit. Consultation #2: 12/27/18 19:40 spoke with [facility] physician who agreed to admit patient to their service. ED Medical Decision Making - Lab Data Result diagrams: 12/27/18 16:21 12/27/18 16:21 Lab Results 12/27/18 12/27/18 12/27/18 Range/Units 16:16 16:16 16:21 WBC 7.7 (4.5-11.0) K/mm3 RBC 3.90 (3.65-5.03) M/mm3 Hgb 9.7 L (10.1-14.3) gm/dl Hct 31.0 (30.3-42.9) % MCV 80 (79-97) fl MCH 25 L (28-32) pg MCHC 31 (30-34) % RDW 19.0 H (13.2-15.2) % Plt Count 290 (140-440) K/mm3 Lymph % (Auto) 30.0 (13.4-35.0) % Pitt % (Auto) 6.5 (0.0-7.3) % Eos % (Auto) 0.9 (0.0-4.3) % Baso % (Auto) 0.5 (0.0-1.8) % Lymph # 2.3 (1.2-5.4) K/mm3 Pitt # 0.5 (0.0-0.8) K/mm3 Eos # 0.1 (0.0-0.4) K/mm3 Baso # 0.0 (0.0-0.1) K/mm3 Seg Neutrophils % 62.1 (40.0-70.0) % Seg Neutrophils # 4.8 (1.8-7.7) K/mm3 Sodium (137-145) mmol/L Potassium (3.6-5.0) mmol/L Chloride (98-107) mmol/L Carbon Dioxide (22-30) mmol/L Anion Gap mmol/L BUN (7-17) mg/dL Creatinine (0.7-1.2) mg/dL Estimated GFR ml/min BUN/Creatinine Ratio % Glucose (65-100) mg/dL Calcium (8.4-10.2) mg/dL Total Bilirubin (0.1-1.2) mg/dL AST (5-40) units/L ALT (7-56) units/L Alkaline Phosphatase (35-129) units/L Total Protein (6.3-8.2) g/dL Albumin (3.9-5) g/dL Albumin/Globulin Ratio % Lipase (13-60) units/L Urine Color Straw (Yellow) Urine Turbidity Clear (Clear) Urine pH 6.0 (5.0-7.0) Ur Specific [place] 1.011 (1.003-1.030) Urine Protein <15 mg/dl (Negative) mg/dL Urine Glucose (UA) Neg (Negative) mg/dL Urine Ketones Neg (Negative) mg/dL Urine Blood Neg (Negative) Urine Nitrite Neg (Negative) Urine Bilirubin Neg (Negative) Urine Urobilinogen < 2.0 (<2.0) mg/dL Ur Leukocyte Esterase Neg (Negative) Urine WBC (Auto) < 1.0 (0.0-6.0) /HPF Urine RBC (Auto) 1.0 (0.0-6.0) /HPF U Epithel Cells (Auto) 2.0 (0-13.0) /HPF Urine HCG, Qual Negative (Negative) 12/27/18 12/27/18 Range/Units 16:21 16:21 WBC (4.5-11.0) K/mm3 RBC (3.65-5.03) M/mm3 Hgb (10.1-14.3) gm/dl Hct (30.3-42.9) % MCV (79-97) fl MCH (28-32) pg MCHC (30-34) % RDW (13.2-15.2) % Plt Count (140-440) K/mm3 Lymph % (Auto) (13.4-35.0) % Pitt % (Auto) (0.0-7.3) % Eos % (Auto) (0.0-4.3) % Baso % (Auto) (0.0-1.8) % Lymph # (1.2-5.4) K/mm3 Pitt # (0.0-0.8) K/mm3 Eos # (0.0-0.4) K/mm3 Baso # (0.0-0.1) K/mm3 Seg Neutrophils % (40.0-70.0) % Seg Neutrophils # (1.8-7.7) K/mm3 Sodium 141 (137-145) mmol/L Potassium 3.5 L (3.6-5.0) mmol/L Chloride 106.8 (98-107) mmol/L Carbon Dioxide 22 (22-30) mmol/L Anion Gap 16 mmol/L BUN 15 (7-17) mg/dL Creatinine 0.6 L (0.7-1.2) mg/dL Estimated GFR > 60 ml/min BUN/Creatinine Ratio 25 % Glucose 77 (65-100) mg/dL Calcium 9.0 (8.4-10.2) mg/dL Total Bilirubin 0.40 (0.1-1.2) mg/dL AST 16 (5-40) units/L ALT 12 (7-56) units/L Alkaline Phosphatase 71 (35-129) units/L Total Protein 7.5 (6.3-8.2) g/dL Albumin 4.1 (3.9-5) g/dL Albumin/Globulin Ratio 1.2 % Lipase 10 L (13-60) units/L Urine Color (Yellow) Urine Turbidity (Clear) Urine pH (5.0-7.0) Ur Specific [place] (1.003-1.030) Urine Protein (Negative) mg/dL Urine Glucose (UA) (Negative) mg/dL Urine Ketones (Negative) mg/dL Urine Blood (Negative) Urine Nitrite (Negative) Urine Bilirubin (Negative) Urine Urobilinogen (<2.0) mg/dL Ur Leukocyte Esterase (Negative) Urine WBC (Auto) (0.0-6.0) /HPF Urine RBC (Auto) (0.0-6.0) /HPF U Epithel Cells (Auto) (0-13.0) /HPF Urine HCG, Qual (Negative) - Radiology Data Radiology results: report reviewed Age/Sex: 48 / F ADM Date: 12/27/18 Loc: ED Attending Dr: Ordering Physician: AMERICO LANG Date of Service: 12/27/18 Procedure(s): CT abdomen pelvis w con Accession Number(s): [id number] cc: AMERICO LANG CT ABDOMEN AND PELVIS WITH IV CONTRAST INDICATION: MAIN: RLQ pain; 100ML OF OMNI 300. COMPARISON: CT 12/10/2016. TECHNIQUE: All CT scans at this facility use dose modulation, automated exposure control, iterative reconstruction or weight based dosing, when appropriate, to reduce radiation dose to as low as reasonably achievable. FINDINGS: Lung Bases: No significant abnormality. Skeletal System: No acute abnormality. ABDOMEN: Liver: No significant abnormality. Gallbladder: No significant abnormality. Bile Ducts: No significant abnormality. Pancreas: No significant abnormality. Spleen: No significant abnormality. Adrenals: No significant abnormality. Right Kidney: No significant abnormality. Left Kidney: No significant abnormality. Upper GI tract: Postsurgical changes are seen at the stomach. Stomach and duodenum are relatively decompressed. Lymph Nodes: No significant adenopathy. Aorta: No significant abnormality. Additional Findings: No significant abnormality. PELVIS: Colon: There is severe constipation. No intrinsic colonic inflammation is seen. Urinary Bladder and Distal Ureters: No significant abnormality. Appendix: The appendix is dilated and fluid-filled with mild peripheral enhancement and periappendiceal inflammation. Lymph Nodes: No significant adenopathy. Additional Findings: None. IMPRESSION: 1. Acute appendicitis. No periappendiceal abscess is seen. 2. There is advanced, severe constipation. Signer Name: Rashad Brink MD Signed: 12/27/2018 7:06 PM Workstation Name: [id number] Transcribed By: MELCHOR Dictated By: Rashad Brink MD Electronically Authenticated By: Rashad Brink MD Signed Date/Time: 12/27/18 5566 - Medical Decision Making patient is nontoxic and in no distress. RLQ TTP. CT ordered and confirmed acute appendicitis with no perforation or abscess. I consulted surgery who will see patient tomorrow AM and take to the OR. I spoke with [facility] who agreed to admit. patient will be NPO, zosyn started as well as mantinence fluids. Attending notified and agrees with plan. - Differential Diagnosis appendicitis, ovarian cyst, ovarian torsion Critical care attestation.: If time is entered above; I have spent that time in minutes in the direct care of this critically ill patient, excluding procedure time. ED Disposition Clinical Impression: Acute appendicitis Qualifiers: Acute appendicitis type: with localized peritonitis Appendicitis gangrene presence: without gangrene Appendicitis perforation presence: without perforation Appendicitis abscess presence: without abscess Qualified Code(s): K35.30 - Acute appendicitis with localized peritonitis, without perforation or gangrene Disposition: DC-09 OP ADMIT IP TO THIS HOSP Is pt being admited?: No Does the pt Need Aspirin: No Condition: Stable Time of Disposition: 19:42
[2018-12-27] MEDS ORDERED: ONDANSETRON 4 MG/2 ML INJ IV ONE (18:02)
[2018-12-27] MEDS ORDERED: MORPHINE 4 MG/1 ML INJ IV ONE ×2 (18:02→19:19)
[2018-12-27] MEDS ORDERED: diphenhydrAMINE 25 MG CAP PO ONE (18:03)
[2018-12-27 18:11] LABS: HCG Qualitative,Urine Negative (Negative)
[2018-12-27] MEDS ORDERED: diphenhydrAMINE 50 MG/ML VIAL IV ONE (18:43)
[2018-12-27] MEDS ORDERED: diphenhydrAMINE 50 MG/ML VIAL ONE ×2 (18:47→23:57)
--- NOTE | 2018-12-27 19:10 | Cat Scan Report ---
CT ABDOMEN AND PELVIS WITH IV CONTRAST INDICATION: MAIN: RLQ pain; 100ML OF OMNI 300. COMPARISON: CT 12/10/2016. TECHNIQUE: All CT scans at this facility use dose modulation, automated exposure control, iterative reconstructi on or weight based dosing, when appropriate, to reduce radiation dose to as low as reasonably achieva ble. FINDINGS: Lung Bases: No significant abnormality. Skeletal System: No acute abnormality. ABDOMEN: Liver: No significant abnormality. Gallbladder: No significant abnormality. Bile Ducts: No significant abnormality. Pancreas: No significant abnormality. Spleen: No significant abnormality. Adrenals: No significant abnormality. Right Kidney: No significant abnormality. Left Kidney: No significant abnormality. Upper GI tract: Postsurgical changes are seen at the stomach. Stomach and duodenum are relatively dec ompressed. Lymph Nodes: No significant adenopathy. Aorta: No significant abnormality. Additional Findings: No significant abnormality. PELVIS: Colon: There is severe constipation. No intrinsic colonic inflammation is seen. Urinary Bladder and Distal Ureters: No significant abnormality. Appendix: The appendix is dilated and fluid-filled with mild peripheral enhancement and periappendice al inflammation. Lymph Nodes: No significant adenopathy. Additional Findings: None. IMPRESSION: 1. Acute appendicitis. No periappendiceal abscess is seen. 2. There is advanced, severe constipation. Signer Name: Rashad Brink MD Signed: 12/27/2018 7:06 PM Workstation Name: Managed by [id number]
[2018-12-27] MEDS ORDERED: PIPERACIL/TAZOBACTA 4.5/NS 100 4.5 GM/100 ML VIAL IV ONE (19:19)
[2018-12-27] MEDS ORDERED: SODIUM CHLORIDE 0.9% 1000 ML 1,000 ML IV ONE (19:38)
--- NOTE | 2018-12-27 19:41 | History and Physical Report ---
History of Present Illness Chief complaint: My stomach is killing me History of present illness: 48 YO Female with Obesity, GERD presents to ED for evaluation. Pt states that she has experienced pain that is localized to the RLQ of her abdomen. Pt states that the pain began 2 days ago and has gotten progressively worse over the same time frame. Pt states that pain is 10/10, constant, radiates to her umbilicus, worsened with movement, and relieved with non-movement. Pt acknowledges nausea, multiple episodes of vomiting, subjective fever. Pt denies CP,Palpitations, Trauma, BRBPR, productive cough, recent ill contacts, or ingestion of food/water from new or different sources. Pt transported to [facility] via private vehicle. Pt seen and evaluated and found to have Acute Appendicitis. Surgery team consulted in ED. Pt admitted to surgical floor. Pt initiated on IV antibiotic therapy. Prior admission on 07/18/17 reviewed. No medication listed for reconciliation at time of admission. Past History Past Medical History: other (see hpi) Past Surgical History: bowel surgery, Other (Gastric bypass (11/08/2013), gastric bypass revision (11/22/2016) by Dr. Pitt,reversal 07/2017. x 2) Social history: single. denies: smoking, alcohol abuse, prescription drug abuse Family history: no significant family history (reviewed) Medications and Allergies Allergies Allergy/AdvReac Type Severity Reaction Status Date / Time No Known Allergies Allergy Verified 07/24/17 16:29 Home Medications Medication Instructions Recorded Confirmed Last Taken Type Loratadine [Claritin] 10 mg PO QDAY tablet 12/15/16 07/25/17 4 Days Ago Rx ~07/21/17 Acetaminophen [Tylenol Extra 500 mg PO PRN PRN 07/12/17 07/25/17 1 Week Ago History Strength] ~07/18/17 Cholestyramine/Aspartame 4 gm PO PRN PRN 07/12/17 07/25/17 2 Months Ago History [Cholestyramine Light Packet] ~05/25/17 Cyanocobalamin [Vitamin B-12] 1,000 mcg IM QMONTH 07/12/17 07/25/17 2 Weeks Ago History ~07/11/17 Diphenoxylate HCl/Atropine 1 tab PO DAILY 07/12/17 07/24/17 07/24/17 History [Diphenoxylate-Atrop 2.5-0.025] Furosemide [Lasix TAB] 20 mg PO DAILY 07/12/17 07/25/17 2 Weeks Ago History ~07/11/17 traZODone [Desyrel] 50 mg PO QHS 07/12/17 07/25/17 2 Weeks Ago History ~07/11/17 Potassium Chloride [K-Dur] 10 meq PO QDAY #30 tablet 07/19/17 07/24/17 07/24/17 Rx diphenhydrAMINE [Benadryl CAP] 25 mg PO Q8HR PRN 07/25/17 07/25/17 07/24/17 History Acetaminophen/Codeine [Tylenol 1 tab PO Q6H PRN #12 tab 09/11/17 Unknown Rx /Codeine # 3 tab] Silver Sulfadiazine [Silvadene] 25 gm TP BID #1 cream..g. 09/11/17 Unknown Rx Sulfamethoxazole/Trimethoprim 1 each PO BID #14 tablet 09/11/17 Unknown Rx [Bactrim DS TAB] Cipro/Dexameth 0.3/0.1% [Ciprodex 4 drops OT BID 10 Days #1 bottle 12/06/17 Unknown Rx OTIC] Ibuprofen [Ibuprofen 800] 800 mg PO TID PRN #30 tablet 12/06/17 Unknown Rx Amoxicillin/K Clav Tab [Augmentin 1 tab PO Q12HR #20 tab 10/13/18 Unknown Rx 875MG TAB] Cetirizine HCl [ZyrTEC] 10 mg PO QAM 14 Days #14 capsule 10/13/18 Unknown Rx Fluticasone [Flonase] 1 spray NS QDAY 14 Days #1 bottle 10/13/18 Unknown Rx Prednisone [predniSONE 10 mg 10 mg PO .TAPER #1 tab.ds.pk 10/13/18 Unknown Rx (6-Day Pack, 21 Tabs)] guaiFENesin/CODEINE [Robitussin AC] 10 ml PO QHS PRN #70 oral.liqd 10/13/18 Unknown Rx Active Meds: Active Medications Piperacillin Sod/Tazobactam Sod (Zosyn/Ns 4.5gm/100ml) 4.5 gm in 100 mls @ 200 mls/hr IV ONCE ONE; Protocol Stop: 12/27/18 19:48 Sodium Chloride (Nacl 0.9% 1000 Ml) 1,000 mls @ 999 mls/hr IV BOLUS ONE Stop: 12/27/18 20:38 Review of Systems Constitutional: fever, no weight loss, no weight gain, no chills, no sweats Ears, nose, mouth and throat: no ear pain, no ear discharge, no tinnitis, no decreased hearing, no nasal congestion Breasts: no change in shape, no swelling, no mass Cardiovascular: no chest pain, no orthopnea, no palpitations, no rapid/irregular heart beat, no edema, no syncope, no lightheadedness Respiratory: no cough with sputum, no excessive sputum, no hemoptysis, no shortness of breath Gastrointestinal: abdominal pain, nausea, vomiting, loss of appetite, no hematemesis, no melena, no hematochezia, no early satiety Genitourinary Female: no pelvic pain, no flank pain, no menorrhagia, no dysuria, no urinary frequency Rectal: no pain, no incontinence, no bleeding Musculoskeletal: no neck stiffness, no neck pain, no arm numbness/tingling, no low back pain, no shooting leg pain, no leg numbness/tingling Integumentary: no rash, no pruritis, no sores, no wounds, no jaundice Neurological: no transient paralysis, no paralysis, no weakness, no tingling, no syncope, no tremors Psychiatric: no anxiety, no memory loss, no sleep disturbances, no hypersomnia, no change in appetite, no change in libido Endocrine: no cold intolerance, no heat intolerance, no excessive thirst, no polydipsia, no polyuria, no nocturia Hematologic/Lymphatic: no easy bruising, no easy bleeding, no lymphadenopathy, no lymphedema, no thrombophilia Allergic/Immunologic: no urticaria, no allergic rhinitis, no persistent infections, no anaphylaxis, no gluten intolerance Exam - Constitutional Vitals: Temp Pulse Resp BP Pulse Ox 98.4 F 93 H 16 115/66 99 12/27/18 15:42 12/27/18 15:42 12/27/18 15:42 12/27/18 15:42 12/27/18 15:42 General appearance: Present: mild distress - EENT Eyes: Present: PERRL ENT: hearing intact, clear oral mucosa - Neck Neck: Present: supple, normal ROM - Respiratory Respiratory effort: normal Respiratory: bilateral: CTA - Cardiovascular Heart Sounds: Present: S1 & S2. Absent: rub, click - Extremities Extremities: pulses symmetrical, No edema Peripheral Pulses: within normal limits - Abdominal General gastrointestinal: Present: soft, tender, non-distended, normal bowel sounds. Absent: hepatomegaly, splenomegaly, mass, hernia Female genitourinary: Present: normal - Integumentary Integumentary: Present: clear, warm, dry - Musculoskeletal Musculoskeletal: gait normal, strength equal bilaterally - Psychiatric Psychiatric: appropriate mood/affect, intact judgment & insight - Neurologic Neurologic: CNII-XII intact, moves all extremities Results - Labs CBC & Chem 7: 12/27/18 16:21 12/27/18 16:21 Labs: Abnormal lab results 12/27/18 12/27/18 12/27/18 Range/Units 16:21 16:21 16:21 Hgb 9.7 L (10.1-14.3) gm/dl MCH 25 L (28-32) pg RDW 19.0 H (13.2-15.2) % Potassium 3.5 L (3.6-5.0) mmol/L Creatinine 0.6 L (0.7-1.2) mg/dL Lipase 10 L (13-60) units/L Assessment and Plan - Patient Problems (1) Acute appendicitis Status: Acute Qualifiers: Acute appendicitis type: with localized peritonitis Appendicitis gangrene presence: without gangrene Appendicitis perforation presence: without perforation Appendicitis abscess presence: without abscess Qualified Code(s): K35.30 - Acute appendicitis with localized peritonitis, without perforation or gangrene Plan to address problem: IV antibiotic therapy, CBC, CMP, CT Abdomen pelvis, serial abdominal exam, surgery team consulted in ED, NPO after midnight, bowel rest, IVF resuscitation (2) Obesity (BMI 30.0-34.9) Status: Acute Plan to address problem: balanced diet, increased physical activity at discharge. (3) GERD (gastroesophageal reflux disease) Status: Acute Qualifiers: Esophagitis presence: without esophagitis Qualified Code(s): K21.9 - Gastro-esophageal reflux disease without esophagitis Plan to address problem: PPI therapy, (4) Fluid retention in legs Status: Chronic Plan to address problem: Diuresis with lasix daily, (5) DVT prophylaxis Status: Acute Plan to address problem: SCD to BLE while in bed, Pt ambulatory
[2018-12-27] MEDS ORDERED: ONDANSETRON 4 MG/2 ML INJ IV PRN (19:42)
[2018-12-27] MEDS ORDERED: ALBUTEROL 2.5 MG/3 ML NEBU IH PRN (19:42)
[2018-12-27] MEDS ORDERED: ACETAMINOPHEN 325 MG TAB PO PRN (19:42)
[2018-12-27] MEDS ORDERED: metroNIDAZOLE/NS 500 MG/100 ML 500 MG/100 ML BAG IV ONE (22:20)
[2018-12-27] MEDS: metroNIDAZOLE/NS 500 MG/100 ML 500 MG/100 ML BAG IV SCH (22:31)
[2018-12-27] MEDS ORDERED: MORPHINE 2 MG/1 ML INJ ONE (23:57)
[2018-12-27] MEDS: diphenhydrAMINE 50 MG/ML VIAL IV PRN (23:59)
[2018-12-27] MEDS: MORPHINE 2 MG/1 ML INJ IV PRN (23:59)
[2018-12-28] MEDS ORDERED: PIPERACILLIN/TAZOBACTAM 3.375 3.375 GM/50 ML BAG IV ONE (00:03)
[2018-12-28] MEDS: PIPERACILLIN/TAZOBACTAM 3.375 3.375 GM/50 ML BAG IV SCH ×4 (00:08→22:09)
[2018-12-28] MEDS: MORPHINE 2 MG/1 ML INJ IV PRN ×3 (05:43→20:11)
[2018-12-28] MEDS: diphenhydrAMINE 50 MG/ML VIAL IV PRN ×4 (05:45→22:56)
[2018-12-28] MEDS: metroNIDAZOLE/NS 500 MG/100 ML 500 MG/100 ML BAG IV SCH (06:16)
[2018-12-28] MEDS ORDERED: FUROSEMIDE 20 MG/2 ML INJ IV SCH (10:00)
--- NOTE | 2018-12-28 10:12 | Consultation ---
History of Present Illness Consult date: 12/28/18 Reason for consult: abdominal pain Chief complaint: abdominal pain - History of present illness History of present illness: 48 yo F with multiple past abdominal surgeries including laparoscopic gastric by pass with subsequent revision, csection x2, abdominoplasty presents with c/o 3 days of abdominal pain located in the RLQ. The pain started suddenly and has remained constant and severe. Pain does not radiate. Pt denies any exacerbating factors. She has never had pain like this before. She feels nauseated but has not vomited. Poor appetite. No f/c, cp, sob, c/d. States she is having BMs. Past History Past Medical History: other (see hpi) Past Surgical History: bowel surgery, Other (Gastric bypass (11/08/2013), gastric bypass revision (11/22/2016) by Dr. Pitt,reversal 07/2017. x 2, abdominoplasty, L breast cyst removal) Social history: single. denies: smoking, alcohol abuse, prescription drug abuse Family history: no significant family history (reviewed) Medications and Allergies Allergies Allergy/AdvReac Type Severity Reaction Status Date / Time No Known Allergies Allergy Verified 07/24/17 16:29 Home Medications Medication Instructions Recorded Confirmed Last Taken Type Furosemide [Lasix TAB] 20 mg PO DAILY 07/12/17 12/28/18 2 Weeks Ago History ~07/11/17 Acetaminophen/Codeine [Tylenol 1 tab PO Q6H PRN #12 tab 09/11/17 12/28/18 Unknown Rx /Codeine # 3 tab] Cetirizine HCl [ZyrTEC] 10 mg PO QAM 14 Days #14 capsule 10/13/18 12/28/18 Unknown Rx Active Meds: Active Medications Acetaminophen (Tylenol) 650 mg PO Q4H PRN PRN Reason: Pain MILD(1-3)/Fever >100.5/GILES Albuterol (Proventil) 2.5 mg IH Q4HRT PRN PRN Reason: Shortness Of Breath Diphenhydramine HCl (Benadryl) 25 mg IV Q4H PRN PRN Reason: Itching Furosemide (Lasix) 20 mg IV QDAY RIA Hydromorphone HCl (Dilaudid) 2 mg IV Q3H PRN PRN Reason: Pain , Severe (7-10) Piperacillin Sod/Tazobactam Sod (Zosyn/Ns 3.375gm/50ml) 3.375 gm in 50 mls @ 100 mls/hr IV Q8HR RIA; Protocol Last Admin: 12/28/18 06:00 Dose: 100 mls/hr Documented by: Metronidazole (Flagyl 500 Mg/100 Ml) 500 mg in 100 mls @ 100 mls/hr IV Q8HR RIA; Protocol Last Admin: 12/28/18 06:16 Dose: 100 mls/hr Documented by: Morphine Sulfate (Morphine) 2 mg IV Q4H PRN PRN Reason: Pain, Moderate (4-6) Last Admin: 12/28/18 05:43 Dose: 2 mg Documented by: Ondansetron HCl (Zofran) 4 mg IV Q8H PRN PRN Reason: Nausea And Vomiting Sodium Chloride (Sodium Chloride Flush Syringe 10 Ml) 10 ml IV BID RIA Sodium Chloride (Sodium Chloride Flush Syringe 10 Ml) 10 ml IV PRN PRN PRN Reason: LINE FLUSH Review of Systems All systems: negative (10 pt ROS performed and negative except for that listed in HPI) Exam Vital Signs Temp Pulse Resp BP Pulse Ox 98.4 F 93 H 16 115/66 99 12/27/18 15:42 12/27/18 15:42 12/27/18 15:42 12/27/18 15:42 12/27/18 15:42 Narrative exam: Gen: AAOx3. NAD ENT: NO scleral icterus CV: s1, S2+ Resp: even and unlabored Abd: soft, mildly distended, +RLQ and R mid abdominal TTP. NO r/r/g. Multiple well healed surgical scars Ext: no c/c/e Results - Labs 12/27/18 16:21 12/27/18 16:21 Abnormal lab results 12/27/18 12/27/18 12/27/18 Range/Units 16:21 16:21 16:21 Hgb 9.7 L (10.1-14.3) gm/dl MCH 25 L (28-32) pg RDW 19.0 H (13.2-15.2) % Potassium 3.5 L (3.6-5.0) mmol/L Creatinine 0.6 L (0.7-1.2) mg/dL Lipase 10 L (13-60) units/L Diabetes panel 12/27/18 Range/Units 16:21 Sodium 141 (137-145) mmol/L Potassium 3.5 L (3.6-5.0) mmol/L Chloride 106.8 (98-107) mmol/L Carbon Dioxide 22 (22-30) mmol/L BUN 15 (7-17) mg/dL Creatinine 0.6 L (0.7-1.2) mg/dL Glucose 77 (65-100) mg/dL Calcium 9.0 (8.4-10.2) mg/dL AST 16 (5-40) units/L ALT 12 (7-56) units/L Alkaline Phosphatase 71 (35-129) units/L Total Protein 7.5 (6.3-8.2) g/dL Albumin 4.1 (3.9-5) g/dL Calcium panel 12/27/18 Range/Units 16:21 Calcium 9.0 (8.4-10.2) mg/dL Albumin 4.1 (3.9-5) g/dL Pituitary panel 12/27/18 Range/Units 16:21 Sodium 141 (137-145) mmol/L Potassium 3.5 L (3.6-5.0) mmol/L Chloride 106.8 (98-107) mmol/L Carbon Dioxide 22 (22-30) mmol/L BUN 15 (7-17) mg/dL Creatinine 0.6 L (0.7-1.2) mg/dL Glucose 77 (65-100) mg/dL Calcium 9.0 (8.4-10.2) mg/dL Adrenal panel 12/27/18 Range/Units 16:21 Sodium 141 (137-145) mmol/L Potassium 3.5 L (3.6-5.0) mmol/L Chloride 106.8 (98-107) mmol/L Carbon Dioxide 22 (22-30) mmol/L BUN 15 (7-17) mg/dL Creatinine 0.6 L (0.7-1.2) mg/dL Glucose 77 (65-100) mg/dL Calcium 9.0 (8.4-10.2) mg/dL Total Bilirubin 0.40 (0.1-1.2) mg/dL AST 16 (5-40) units/L ALT 12 (7-56) units/L Alkaline Phosphatase 71 (35-129) units/L Total Protein 7.5 (6.3-8.2) g/dL Albumin 4.1 (3.9-5) g/dL - Imaging CT scan - abdomen: report reviewed, image reviewed CT scan - pelvis: report reviewed, image reviewed Assessment and Plan 48 yo F with acute appendicitis Plan: 1. NPO 2. IVF 3. IV abx 4. prn pain and nausea control 5. DVT ppx 6. Recommend appendectomy. Discussed the indication, risks, benefits, alternatives to surgery with the patient in detail. Explained to patient that she has a higher risk of conversion to open surgery due to her many prior abdominal surgeries. All questions answered and patient agreeable to proceed. Consent obtained. Patient added on to OR schedule for this afternoon. Thank you, please call with questions.
[2018-12-28 10:34] LABS: Basophils % (Auto) 0.4 % (0.0-1.8); Eosinophils # (Auto) 0.1 K/mm3 (0.0-0.4); Eosinophils % (Auto) 1.5 % (0.0-4.3); Hematocrit 28.7 % (30.3-42.9); Hemoglobin 8.9 gm/dl (10.1-14.3); Lymphocytes # (Auto) 2.1 K/mm3 (1.2-5.4); Lymphocytes % (Auto) 28.7 % (13.4-35.0); Mean Corpuscular HGB Conc 31 % (30-34); Mean Corpuscular Volume 80 fl (79-97); Monocytes # (Auto) 0.5 K/mm3 (0.0-0.8); Monocytes % (Auto) 7.3 % (0.0-7.3); Platelet Count 239 K/mm3 (140-440); Red Blood Count 3.59 M/mm3 (3.65-5.03); Red Cell Distribution Width 18.7 % (13.2-15.2)
[2018-12-28 10:46] LABS: BUN/Creatinine Ratio 14; Blood Urea Nitrogen 10 mg/dL (7-17); Calcium 8.6 mg/dL (8.4-10.2); Hemolysis Index 3
[2018-12-28] MEDS ORDERED: D5W/0.9% NACL 1,000 ML IV SCH (12:00)
[2018-12-28] MEDS ORDERED: LACTATED RINGERS 1,000 ML IV SCH (12:12)
[2018-12-28] MEDS ORDERED: LACTATED RINGERS 1,000 ML ONE (12:13)
--- NOTE | 2018-12-28 12:21 | Anesthesia Day of Surgery ---
Anesthesia Day of Surgery - Day of Surgery Patient Examined: Yes Patient H&P Reviewed: Yes Patient is NPO: Yes
--- NOTE | 2018-12-28 12:21 | Anesthesia Consultation ---
Anesthesia Consult and Med Hx Date of service: 12/28/18 - Airway Anesthetic Teeth Evaluation: Partials (upper and lower) ROM Head & Neck: Adequate Mental/Hyoid Distance: Adequate Mallampati Class: Class II Intubation Access Assessment: Probably Good - Pre-Operative Health Status ASA Pre-Surgery Classification: ASA2, Emergency Proposed Anesthetic Plan: General - Pulmonary Hx Smoking: No Hx Asthma: No COPD: No Hx Pneumonia: No Hx Sleep Apnea: No - Cardiovascular System Hx Hypertension: No Hx Pacemaker: No Hx Internal Defibrillator: No - Central Nervous System Hx Seizures: No CVA: No Hx Psychiatric Problems: No - Gastrointestinal Hx Gastroesophageal Reflux Disease: Yes - Endocrine Hx Renal Disease: No Hx End Stage Renal Disease: No Hx Liver Disease: No Hx Thyroid Disease: No - Other Systems Hx Alcohol Use: Yes (occassional) Hx Substance Use: No Hx Cancer: No Hx Obesity: Yes (s/p gastric bypass (14'), revision (17'), reversal (18')) - Additional Comments Anesthesia Medical History Comments: acute appendicitis
[2018-12-28] MEDS ORDERED: MORPHINE 4 MG/1 ML INJ IM ONE (12:26)
[2018-12-28] MEDS ORDERED: diphenhydrAMINE 50 MG/ML VIAL IV ONE (12:26)
[2018-12-28] MEDS ORDERED: FAMOTIDINE 20 MG/2 ML INJ IV NR (13:00)
[2018-12-28] MEDS ORDERED: MIDAZOLAM 2 MG/2 ML INJ IV NR (13:00)
[2018-12-28] MEDS ORDERED: BUPIVACAINE/PF (0.5%) 5 MG/1 ML 30 ML VIAL INFILTRATI ONE ×2 (14:00→15:39)
[2018-12-28] MEDS ORDERED: LIDOCAINE (1%) 10 MG/1 ML VIAL 20 ML MDV ONE (14:00)
[2018-12-28] MEDS ORDERED: BUPIVACAINE-EPINEPHRINE/PF 0.5%-1:200,000 (30 ML) VIAL INFILTRATI ONE (14:00)
[2018-12-28] MEDS ORDERED: PROPOFOL 200 MG/20 ML VIAL IV ONE (14:30)
[2018-12-28] MEDS ORDERED: fentaNYL 100 MCG/2 ML INJ ONE (14:30)
[2018-12-28] MEDS ORDERED: ROCURONIUM 50 MG/5 ML INJ IV ONE (14:31)
[2018-12-28] MEDS ORDERED: LIDOCAINE MPF (2%) 20 MG/1 ML VIAL 5 ML ONE (14:32)
[2018-12-28] MEDS ORDERED: HYDROmorphone 1 MG/1 ML INJ ONE (14:37)
--- NOTE | 2018-12-28 15:08 | Progress Note ---
Assessment and Plan / Acute appendicitis IV antibiotic therapy, serial abdominal exam, surgery team consulted in ED, NPO after midnight, bowel rest, IVF resuscitation plan for surgery today / Obesity (BMI 30.0-34.9) balanced diet, increased physical activity at discharge. / GERD (gastroesophageal reflux disease) PPI therapy, /Chronic Lymphedema on Diuresis with lasix daily at home, will hold for now / DVT prophylaxis SCD to BLE while in bed Subjective Date of service: 12/28/18 Interval history: Patient seen and examined Planned for surgery today c/o abdominal pain Keeping NPO till surgery Objective - Constitutional Vitals: Vital Signs - 12hr 12/28/18 12/28/18 12/28/18 04:20 05:43 07:49 Temperature 97.6 F 97.8 F Pulse Rate 56 L 59 L Respiratory 20 18 18 Rate Blood Pressure 113/67 118/53 O2 Sat by Pulse 97 99 Oximetry 12/28/18 12/28/18 12/28/18 10:45 11:50 12:00 Temperature 99.1 F 99.1 F Pulse Rate 55 L 55 L Respiratory 16 16 Rate Blood Pressure 112/66 112/66 O2 Sat by Pulse 99 98 98 Oximetry General appearance: Present: no acute distress, well-nourished - EENT Eyes: PERRL, EOM intact ENT: hearing intact, clear oral mucosa Ears: bilateral: normal - Neck Neck: supple, normal ROM - Respiratory Respiratory effort: normal Respiratory: bilateral: CTA - Cardiovascular Rhythm: regular Heart Sounds: Present: S1 & S2. Absent: gallop, rub Extremities: pulses intact, No edema, normal color, Full ROM - Gastrointestinal General gastrointestinal: Present: soft, tender (RLQ), non-distended, normal bowel sounds - Integumentary Integumentary: clear, warm, dry - Musculoskeletal Musculoskeletal: 1, strength equal bilaterally - Neurologic Neurologic: moves all extremities - Psychiatric Psychiatric: memory intact, appropriate mood/affect, intact judgment & insight - Labs CBC & Chem 7: 12/29/18 05:25 12/29/18 05:25 Labs: Abnormal lab results 12/27/18 12/27/18 12/27/18 Range/Units 16:21 16:21 16:21 RBC (3.65-5.03) M/mm3 Hgb 9.7 L (10.1-14.3) gm/dl Hct (30.3-42.9) % MCH 25 L (28-32) pg RDW 19.0 H (13.2-15.2) % Potassium 3.5 L (3.6-5.0) mmol/L Chloride (98-107) mmol/L Carbon Dioxide (22-30) mmol/L Creatinine 0.6 L (0.7-1.2) mg/dL Lipase 10 L (13-60) units/L 12/28/18 12/28/18 Range/Units 09:13 09:13 RBC 3.59 L (3.65-5.03) M/mm3 Hgb 8.9 L (10.1-14.3) gm/dl Hct 28.7 L (30.3-42.9) % MCH 25 L (28-32) pg RDW 18.7 H (13.2-15.2) % Potassium 3.5 L (3.6-5.0) mmol/L Chloride 108.3 H (98-107) mmol/L Carbon Dioxide 20 L (22-30) mmol/L Creatinine (0.7-1.2) mg/dL Lipase (13-60) units/L
[2018-12-28] MEDS ORDERED: LIDOCAINE (1%) 10 MG/1 ML VIAL 20 ML MDV INFILTRATI ONE (15:39)
[2018-12-28] MEDS ORDERED: SODIUM CHLORIDE 0.9% IRRIG SOLN 2000 ML IR ONE (16:01)
[2018-12-28] MEDS ORDERED: SODIUM CHLORIDE 0.9% IRR 1,500 ML BOTTLE IR ONE (16:01)
[2018-12-28] MEDS ORDERED: ONDANSETRON 4 MG/2 ML INJ ONE (16:28)
[2018-12-28] MEDS ORDERED: GLYCOPYRROLATE 0.4 MG/2 ML INJ ONE (16:28)
[2018-12-28] MEDS ORDERED: NEOSTIGMINE 10MG/10 ML INJ MDV ONE (16:28)
[2018-12-28] MEDS ORDERED: dexAMETHasone 20 MG/5 ML VIAL ONE (16:28)
--- NOTE | 2018-12-28 17:07 | Post Anesthesia Evaluation ---
- Post Anesthesia Evaluation Patient Participated: Yes Airway Patent: Yes Stable Respiratory Function: Yes Nausea/Vomiting: No Temp > 96.8F: Yes Pain Manageable: Yes Adequeate Hydration: Yes Anesthesia Complications: No Block Receding Appropriately: Not Applicable Patient on Ventilator: No
--- NOTE | 2018-12-28 17:13 | Post Operative Note ---
Date of procedure: 12/28/18 Pre-op diagnosis: acute appendicitis Post-op diagnosis: same Findings: Very thickened, inflamed, dilated appendix and mesoappendix. Purulent fluid in appendix Procedure: laparoscopic appendectomy, placement of drain Anesthesia: MORE, local Surgeon: NINA ENG Maid Housekeeper: MANAS MARCANO Estimated blood loss: minimal Pathology: list (appendix) Specimen disposition: to lab Condition: stable Disposition: PACU
[2018-12-28] MEDS: HYDROmorphone 2 MG/1 ML INJ IV PRN ×2 (18:24→22:55)
[2018-12-28] MEDS: SODIUM CHLORIDE 0.9% 1000 ML 1,000 ML IV SCH (18:28)
--- NOTE | 2018-12-28 19:28 | Operative Report ---
PREOPERATIVE DIAGNOSIS: Acute appendicitis. POSTOPERATIVE DIAGNOSIS: Acute gangrenous appendicitis. FINDINGS: Very thickened and inflamed, dilated appendix and mesoappendix. Purulent fluid in appendix. PROCEDURE: Laparoscopic appendectomy, placement of drain. ANESTHESIA: General endotracheal anesthesia, local. SURGEON: Leena Garnica DO. COTTON HEADER: Jeffrey Ngo MD ESTIMATED BLOOD LOSS: Minimal. PATHOLOGY: Appendix. SPECIMEN DISPOSITION: To lab. CONDITION ON DISCHARGE: The patient is stable to PACU. HISTORY OF PRESENT ILLNESS AND INDICATION: The patient is a 48-year-old female presented to the Emergency Room with right lower quadrant abdominal pain, which was acute in onset. CT scan was concerning for acute appendicitis. Physical exam did show localized tenderness in the right lower quadrant. Recommendation was to proceed with appendectomy. All risks, benefits and alternatives to surgery discussed with the patient and questions answered. Consent obtained. PROCEDURE IN DETAIL: The patient was identified in the preoperative area and taken back to the operating room and placed on the operating table in supine position. After anesthesia was induced, a Mendenhall catheter was sterilely placed by the circulating nurse. The left arm was tucked and all bony prominences padded appropriately. The abdomen was then prepped and draped in usual sterile fashion. Timeout was performed. A local anesthetic was infiltrated into all skin incision sites prior to incision. A supraumbilical incision was made using 11 blade through which a Veress needle was inserted. The Veress needle positioning was confirmed using saline drop test and the abdomen insufflated to 15 mmHg. Once the abdomen was insufflated, the Veress needle was removed and a 5 mm Optiview trocar was placed through the incision. The abdomen was inspected. There was no underlying injury to any abdominal structures. The small bowel did look slightly distended. An additional left-sided 12 mm trocar was placed under direct visualization and a 5 mm suprapubic trocar was placed under direct visualization. The patient was placed in reverse Trendelenburg and tilted to the left. The area of the cecum was identified and the ileocecal junction was seen. The appendix was visualized and was densely adhered to the cecum. There was a severe inflammatory reaction involving the appendix and the mesoappendix. The appendix also appeared very thickened and inflamed except for the very tip. The tip of the appendix where there was minimal dilatation was grasped and retracted medially and cephalad. The adhesions from the appendix to the cecum were very meticulously dissected using the Harmonic scalpel. Once these adhesions were taken down, the mesoappendix was also very meticulously dissected. Great care was taken to stay close to the appendix and the mesoappendix was ligated using the Harmonic scalpel. This dissection was continued towards the base of the appendix. Once the base of the appendix was reached, a [place] Flex 45 mm white load stapler was placed at the base of the appendix towards this and closed on a noninflamed portion of the cecum. Once the stapler was completely closed due to pressure in the appendix, there was a small perforation in the appendix with spillage of purulent material localized to that small area. The appendix was then transected with a stapler, placed into the EndoCatch bag immediately. The purulent fluid was suctioned out of the abdomen immediately. We then proceeded to irrigate the right abdomen and the wound bed with a small amount of saline until the irrigant returned clear. The area was inspected for hemostasis, which was carefully ensured. There was no bleeding or spillage from the staple line. The area of the staple line was soft without inflammation. The surgical bed was hemostatic. Garth powder was sprayed into the wound bed to ensure further hemostasis. The appendix was then removed via the 12 mm port. A 19-Romanian Zeferino drain was placed into the abdomen and brought out through the suprapubic port. The drain was positioned in the surgical bed near the staple line and area of dissection. The drain was sutured to the skin using 3-0 nylon drain stitch. The drain was cut to size and attached to bulb suction. The 12 mm port was then removed and the fascia closed using interrupted 0 Vicryl suture using Oleg-Patel device. The abdomen was then desufflated and the remainder of the ports were removed. The skin incisions once again infiltrated with local anesthetic and closed with 4-0 Monocryl subcuticular stitches and skin glue. At the end of the case, all sponge, instrument, sharp counts were correct x 2. The patient was awoken from anesthesia, extubated, and taken to PACU in stable condition. JOB# [id number]/MAHENDRA
[2018-12-29] MEDS: diphenhydrAMINE 50 MG/ML VIAL IV PRN ×2 (02:55→08:32)
[2018-12-29] MEDS: MORPHINE 2 MG/1 ML INJ IV PRN ×2 (02:56→08:33)
[2018-12-29] MEDS: SODIUM CHLORIDE 0.9% 1000 ML 1,000 ML IV SCH (06:29)
[2018-12-29] MEDS: PIPERACILLIN/TAZOBACTAM 3.375 3.375 GM/50 ML BAG IV SCH ×2 (06:30→13:45)
[2018-12-29 06:47] LABS: Hematocrit 28.5 % (30.3-42.9); Mean Corpuscular HGB Conc 32 % (30-34); Mean Corpuscular Volume 79 fl (79-97); Platelet Count 265 K/mm3 (140-440); Red Blood Count 3.61 M/mm3 (3.65-5.03); Red Cell Distribution Width 18.9 % (13.2-15.2)
[2018-12-29 06:59] LABS: BUN/Creatinine Ratio 18; Blood Urea Nitrogen 11 mg/dL (7-17); Calcium 8.8 mg/dL (8.4-10.2); Hemolysis Index 11
--- NOTE | 2018-12-29 10:25 | Discharge Summary ---
<HUSSAINSYED LOPEZPAULO Carmelo - Last Filed: 12/29/18 11:03> Providers - Providers Date of Admission: 12/27/18 19:42 Date of discharge: 12/29/18 Attending physician: WILVER NIXON 12/28/18 09:18 Consult to Physician [CONS] Routine Comment: Consulting Provider: NINA ENG Physician Instructions: Reason For Exam: acute appendicitis Primary care physician: [employer] Hospitalization Condition: Stable Pertinent studies: CT abdomen/pelvis Hospital course: 48 YO Female with Obesity, GERD presents to ED for evaluation of localized to the RLQ of her abdomen. Pt transported to [facility] via private vehicle. Pt seen and evaluated and found to have Acute Appendicitis. Surgery team consulted in ED. Pt admitted to surgical floor. Pt initiated on IV antibiotic therapy. S/p laperoscopic appendectomy by surgery. Discharge Diagnosis and management: / Acute appendicitis IV antibiotic therapy, obtained CT Abdomen pelvis, serial abdominal exam, surgery team consulted, IVF resuscitation s/p surgery on 12/28/18: Very thickened, inflamed, dilated appendix and mesoap pendix. Purulent fluid in appendix will cont abx for one week and will f/u with Dr Eng outpt / Obesity (BMI 30.0-34.9) balanced diet, increased physical activity at discharge. /Chronic Lymphedema on Diuresis with lasix daily at home, will hold for now till f/u with PCP / GERD (gastroesophageal reflux disease) PPI therapy, / DVT prophylaxis SCD to BLE while in bed Disposition: DC-01 TO HOME OR SELFCARE Time spent for discharge: 34 minutes Exam - Constitutional Vitals: Temp Pulse Resp BP Pulse Ox 97.6 F 86 20 141/63 97 12/29/18 07:05 12/29/18 07:14 12/29/18 07:14 12/29/18 07:14 12/29/18 07:14 General appearance: Present: no acute distress, well-nourished - EENT Eyes: Present: PERRL ENT: hearing intact, clear oral mucosa - Neck Neck: Present: supple, normal ROM - Respiratory Respiratory effort: normal Respiratory: bilateral: CTA - Cardiovascular Heart Sounds: Present: S1 & S2. Absent: rub, click - Extremities Extremities: pulses symmetrical, No edema Peripheral Pulses: within normal limits - Abdominal General gastrointestinal: Present: soft, non-distended, normal bowel sounds, other (laperoscopic sam - dry and intact) - Integumentary Integumentary: Present: clear, warm, dry - Musculoskeletal Musculoskeletal: gait normal, strength equal bilaterally - Psychiatric Psychiatric: appropriate mood/affect, intact judgment & insight - Neurologic Neurologic: CNII-XII intact, moves all extremities Plan Activity: advance as tolerated Weight Bearing Status: Non-Weight Bearing Diet: low fat, low salt Wound: keep clean and dry Follow up with: PRIMARY CARE, [Primary Care Provider] - 7 Days NINA ENG DO [Staff Physician] - 14 Days Forms: Work/School Release Form Prescriptions: Amoxicillin/K Clav Tab [Augmentin 875 mg] 1 tab PO Q12HR #14 tab oxyCODONE /ACETAMINOPHEN [Percocet 5/325 mg] 2 tab PO Q6H PRN #20 tablet PRN Reason: Pain, Moderate (4-6) <NINA ENG - Last Filed: 02/04/19 11:05> Providers - Providers Date of Admission: 12/27/18 19:42 Attending physician: WILVER NIXON 12/28/18 09:18 Consult to Physician [CONS] Routine Comment: Consulting Provider: NINA ENG Physician Instructions: Reason For Exam: acute appendicitis Primary care physician: [employer] Exam - Constitutional Vitals: Temp Pulse Resp BP Pulse Ox 97.6 F 86 20 141/63 97 12/29/18 07:05 12/29/18 07:14 12/29/18 07:14 12/29/18 07:14 12/29/18 07:14 Plan Activity: other (no heavy lifting more thqan 15 to 20 lbs for 2 weeks. No driving if taking prescription pain medications) Wound: other (May shower, pat incisions dry, do not scrub. Do not submerge incisions in hottubs/pools/baths until cleared by surgeon. Keep small open incision covered with bandaid) Additional Instructions: Call surgeon's office if you are having intractable abdominal pain, vomiting, fever >100.4
[2018-12-29] MEDS: HYDROmorphone 2 MG/1 ML INJ IV PRN (11:35)
[2018-12-29] MEDS ORDERED: oxyCODONE /ACETAMINOPHEN 5-325MG TAB PO PRN (12:13)
[2018-12-29] MEDS ORDERED: diphenhydrAMINE 25 MG CAP PO PRN (12:13)
--- NOTE | 2018-12-29 13:01 | Progress Note ---
Assessment and Plan 48 yo F s/p laparoscopic appendectomy, POD 1 1. adv to reg diet 2. dc IVF 3. continue oral abx on dc - augmentin 4. GURINDER drain removed intact without difficulty 5. IS/pulm toilet 6. prn PO pain control 7. Discussed with patient the importance of completing full course of abx due to her higher risk of developing intraabdominal abscess. She understands. Verbal dc instructions given to patient. She is to follow up in surgery clinic in 2 weeks. OK to dc from surgery standpoint. D/W Dr. Matamoros. Thank you, please call with questions. Subjective Date of service: 12/29/18 Narrative: Pt seen and examined. c/p R sided abdominal pain and incisional pain. No f/c, cp, sob, n/v. Tolerated clear diet this am. Has been ambulating to bathroom Objective Vital Signs - 12hr 12/29/18 12/29/18 12/29/18 04:21 07:05 07:14 Temperature 97.6 F 97.6 F Pulse Rate 60 57 L 86 Respiratory 18 20 20 Rate Blood Pressure 108/60 107/64 141/63 O2 Sat by Pulse 96 99 97 Oximetry 12/29/18 11:52 Temperature 97.8 F Pulse Rate 70 Respiratory 22 Rate Blood Pressure 119/59 O2 Sat by Pulse 95 Oximetry - General physical appearance Narrative Exam: Gen: AAOx3. NAD CV: s1, S2+ resp: even and unlabored Abd: soft, ND, + TTP near incisions. No r/r/g. Incisions c/d/i. GURINDER drain serosang. Ext: no c/c/e - Labs 12/29/18 05:25 12/29/18 05:25 Diabetes panel 12/29/18 Range/Units 05:25 Sodium 139 (137-145) mmol/L Potassium 3.7 (3.6-5.0) mmol/L Chloride 103.5 (98-107) mmol/L Carbon Dioxide 21 L (22-30) mmol/L BUN 11 (7-17) mg/dL Creatinine 0.6 L (0.7-1.2) mg/dL Glucose 126 H (65-100) mg/dL Calcium 8.8 (8.4-10.2) mg/dL Calcium panel 12/29/18 Range/Units 05:25 Calcium 8.8 (8.4-10.2) mg/dL Pituitary panel 12/29/18 Range/Units 05:25 Sodium 139 (137-145) mmol/L Potassium 3.7 (3.6-5.0) mmol/L Chloride 103.5 (98-107) mmol/L Carbon Dioxide 21 L (22-30) mmol/L BUN 11 (7-17) mg/dL Creatinine 0.6 L (0.7-1.2) mg/dL Glucose 126 H (65-100) mg/dL Calcium 8.8 (8.4-10.2) mg/dL Adrenal panel 12/29/18 Range/Units 05:25 Sodium 139 (137-145) mmol/L Potassium 3.7 (3.6-5.0) mmol/L Chloride 103.5 (98-107) mmol/L Carbon Dioxide 21 L (22-30) mmol/L BUN 11 (7-17) mg/dL Creatinine 0.6 L (0.7-1.2) mg/dL Glucose 126 H (65-100) mg/dL Calcium 8.8 (8.4-10.2) mg/dL
[2018-12-29] MEDS ORDERED: diphenhydrAMINE/ZINC ACET 2% CREAM 28.4 GM TP PRN (13:53)
[2018-12-29 16:57] VITALS: BP 96/51
== END 2018-12-29 18:20 | disposition home or self-care (01) | DRG 343 ==
LOC: ED 14:39 → OBSVTOIN 19:42 → 3B-SURG 19:42
PROVIDERS: ADMIT Internal Medicine; ATTEND Internal Medicine
PROC: 0DTJ4ZZ Resection of Appendix, Percutaneous Endoscopic Approach (ICD-10-PCS; principal; 2018-12-28)
DX: K35.30 Acute appendicitis with localized peritonitis, without perforation or gangrene (principal); E66.9 Obesity, unspecified; K21.9 Gastro-esophageal reflux disease without esophagitis; R60.0 Localized edema; I89.0 Lymphedema, not elsewhere classified; Z68.30 Body mass index [BMI] 30.0-30.9, adult; Z79.899 Other long term (current) drug therapy; Z98.84 Bariatric surgery status
CPT/HCPCS: 36415; 74177; 80048; 80053; 81001; 81025; 83690; 85025; 85027; 88304; 94640; 96374; 96375; 96376; G0378; A4217; J1100; J1170; J1200; J1940; J2250; J2270; J2405; J2543; J2704; J2710; J3010; J7030; J7120; Q9967